=== PATIENT | female | born 1965 | race Caucasian/White ===

== ENCOUNTER 2018-07-03 15:19 | Inpatient (IN) | payer BC ==
[2018-07-03 15:28] VITALS: BMI 20.5
--- NOTE | 2018-07-03 18:26 | HP ---
COWS - Scale Resting Pulse: 0= [place] 80 or Below Sweatin= Chills/Flushing Restless Observation: 1= Difficult to Sit Still Pupil Size: 0= Normal to Room Light Bone or Joint Aches: 2= Severe Diffuse Aches Runny Nose/ Eye Tearin= Nasal Congestion GI Upset > 30mins: 1= Stomach Cramp Tremor Observation: 0= None Yawning Observation: 0= None Anxiety or Irritability: 2=Irritable/Anxious Goose Flesh Skin: 0=Smooth Skin COWS Score: 8 CIWA Score - CIWA Score Nausea/Vomitin-No Nausea/No Vomiting Muscle Tremors: None Anxiety: 4-Mod. Anxious/Guarded Agitation: 1-Slight > Activity Paroxysmal Sweats: No Perspiration Orientation: 0-Oriented Tacttile Disturbances: 0-None Auditory Disturbances: 0-None Visual Disturbances: 0-None Headache: 0-None Present CIWA-Ar Total Score: 5 Admission ROS BHS - HPI Allergies/Adverse Reactions: Allergies Allergy/AdvReac Type Severity Reaction Status Date / Time No Known Allergies Allergy Verified 07/03/18 18:21 History of Present Illness: pt here requesting detox from etoh , opiates , and xanax use , reports latest use this morning . difficulty obtaining etoh history reports 2-4 bags daily via inhalation, denies ivdu . benzo use : 4 sticks/day tobacco ;1 ppd , requesting nrt w/ patch . quentin 0.336 utox + fen, oxy, opi, bzo . pt is poor historian , teraful, falls asleep frequently during interview , answers some questions . pmhx : DM - claims on Metformin , no meds found in system , + PPM pshx : denies psych : anxiety, depression - Ebola screening Have you traveled outside of the country in the last 21 days: No (N) Have you had contact with anyone from an Ebola affected area: No Have you been sick,other than usual withdrawal symptoms: No Do you have a fever: No Patient History - Smoking Cessation Smoking history: Current every day smoker Have you smoked in the past 12 months: Yes Aproximately how many cigarettes per day: 20 Hx Chewing Tobacco Use: No Initiated information on smoking cessation: No Admission Physical Exam S - Vital Signs Vital Signs: Vital Signs - 24 hr 07/03/18 15:25 Temperature 97.2 F L Pulse Rate 71 Respiratory 18 Rate Blood Pressure 114/70 - Physical General Appearance: Yes: Moderate Distress, Alcohol on Breath, Thin, Tremorous, Irritable HEENTM: Yes: Hearing grossly Normal, Normocephalic, Other (missing teeth , poor dentition) Respiratory: Yes: Decreased Breath Sounds, Rhonchi Neck: Yes: No masses,lesions,Nodules Cardiology: Yes: Regular Rhythm, Regular Rate, Surgical Scar (PPM) Abdominal: Yes: Normal Bowel Sounds, Non Tender, Soft Genitourinary: Yes: Within Normal Limits Musculoskeletal: Yes: Other (staggering gait) Neurological: Yes: Other (slurred speech) Integumentary: Yes: Normal Color, Dry, Warm - Diagnostic (1) Alcohol withdrawal Current Visit: Yes Status: Acute Qualifiers: Complication of substance-induced condition: uncomplicated Qualified Code(s ): F10.230 - Alcohol dependence with withdrawal, uncomplicated (2) Opiate withdrawal Current Visit: Yes Status: Acute (3) Sedative dependence Current Visit: Yes Status: Acute (4) Hypertension Current Visit: Yes Status: Chronic Qualifiers: Hypertension type: essential hypertension Qualified Code(s): I10 - Essential (primary) hypertension (5) Diabetes 1.5, 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
[2018-07-03] MEDS ORDERED: chlordiazePOXIDE HCL 25 MG CAPSULE PO PRN (18:45)
[2018-07-03] MEDS ORDERED: P-EPHED 60MG/TRIPROLIDI 2.5MG TABLET PO PRN (18:45)
[2018-07-03] MEDS ORDERED: MAGNESIUM HYDROX 2400MG/30ML ORAL SUSPENSION 30 ML CUP PO PRN (18:45)
[2018-07-03] MEDS ORDERED: ACETAMINOPHEN 325 MG TABLET (FP) PO PRN (18:45)
[2018-07-03] MEDS ORDERED: MAG HYDROX/AL HYDROX/SIMETH 30 ML UNIT-DOSE CUP PO PRN (18:45)
[2018-07-03] MEDS ORDERED: guaiFENesin/D-METHORPHAN HB 10 ML UNIT-DOSE CUPS PO PRN (18:45)
[2018-07-03] MEDS ORDERED: MENTHOL/PHENOL 1 EACH UD MM PRN (18:45)
[2018-07-03] MEDS ORDERED: MAGNESIUM CITRATE 300 ML BOTTLE PO PRN (18:45)
[2018-07-03] MEDS ORDERED: IBUPROFEN 400 MG TABLET (FP) PO PRN (18:45)
[2018-07-03] MEDS ORDERED: ALBUTEROL SO4 0.083% IH SOL 2.5 MG/3 ML VIAL.NEB. NEB PRN (18:54)
[2018-07-03] MEDS ORDERED: ALBUTEROL SO4 8 GM HFA INHALER IH PRN (18:54)
[2018-07-03] MEDS ORDERED: chlordiazePOXIDE 5 MG CAPSULE PO PRN (19:46)
[2018-07-03] MEDS ORDERED: METHADONE HCL 10 MG TABLET (FOR DETOX USE ONLY) PO ONE ×4 (21:50→23:00)
[2018-07-03] MEDS: chlordiazePOXIDE HCL 25 MG CAPSULE PO SCH (22:34)
[2018-07-03] MEDS: THIAMINE HCL 100 MG TABLET (FP) PO SCH (22:35)
[2018-07-03] MEDS: ASPIRIN COATED 81 MG TABLET.EC PO SCH (22:35)
[2018-07-03] MEDS: INSULIN SLIDING SCALE (NOVOLOG) 1 VIAL SQ SCH (22:40)
[2018-07-03] MEDS ORDERED: chlordiazePOXIDE HCL 25 MG CAPSULE PO SCH (23:00)
[2018-07-04 01:00] LABS: URINE APPEARANCE CLEAR; URINE BILIRUBIN NEGATIVE (<2.0 mg/dL); URINE COLOR AMBER; URINE GLUCOSE (UA) NEGATIVE (NEGATIVE); URINE KETONE NEGATIVE (NEGATIVE); URINE LEUK ESTERASE 2+ (NEGATIVE); URINE NITRITE NEGATIVE (NEGATIVE); URINE PROTEIN NEGATIVE (NEGATIVE)
[2018-07-04 01:33] LABS: EPI CELLS MANY /HPF (FEW); URINE MUCUS FEW
[2018-07-04] MEDS: chlordiazePOXIDE HCL 25 MG CAPSULE PO SCH ×4 (06:04→22:56)
[2018-07-04] MEDS: INSULIN SLIDING SCALE (NOVOLOG) 1 VIAL SQ SCH ×5 (08:15→23:03)
[2018-07-04] MEDS ORDERED: METHADONE HCL 10 MG TABLET (FOR DETOX USE ONLY) PO SCH ×3 (10:00)
[2018-07-04 10:05] LABS: HEMATOCRIT 37.1 % (32.4-45.2); HEMOGLOBIN 11.9 GM/dL (10.7-15.3); MCH 29.4 pg (25.7-33.7); MEAN CELL VOLUME 91.9 fl (80-96); MEAN PLT VOLUME 11.1 fl (7.5-11.1); PLATELET COUNT 82 K/MM3 (134-434); RBC 4.04 M/mm3 (3.60-5.2); RDW 13.8 % (11.6-15.6); WHITE BLOOD COUNT 3.1 K/mm3 (4.0-10.0)
--- NOTE | 2018-07-04 10:13 | EKG ---
Test Reason : Blood Pressure : / mmHG Vent. Rate : 061 BPM Atrial Rate : 061 BPM P-R Int : 174 ms QRS Dur : 092 ms QT Int : 444 ms P-R-T Axes : 000 057 021 degrees QTc Int : 446 ms Atrial-paced rhythm WITH PREMATURE ATRIAL COMPLEXES MINIMAL VOLTAGE CRITERIA FOR LVH, MAY BE NORMAL VARIANT SEPTAL INFARCT , AGE UNDETERMINED ABNORMAL ECG NO PREVIOUS ECGS AVAILABLE Confirmed by MINDI OVALLE MD ([id number]) on 07/04/2018 10:13:27 AM Referred By: Confirmed By:MINDI OVALLE MD
[2018-07-04 10:19] LABS: ALBUMIN 2.9 g/dl (3.4-5.0); ALK PHOS 212 U/L (45-117); ANION GAP 9 MMOL/L (8-16); BILIRUBIN,TOTAL 1.2 mg/dL (0.2-1); BLOOD UREA NITROGEN 9 mg/dL (7-18); CALCIUM 8.3 mg/dL (8.5-10.1); CHLORIDE 104 mmol/L (98-107); CO2 30 mmol/L (21-32); CREATININE 0.5 mg/dL (0.55-1.3); GLUCOSE,RANDOM 57 mg/dL (74-106); POTASSIUM 3.4 mmol/L (3.5-5.1); SGOT/AST 276 U/L (15-37); SGPT/ALT 57 U/L (13-61); SODIUM 143 mmol/L (136-145); TOT PROT 7.4 g/dl (6.4-8.2)
[2018-07-04] MEDS: PRENATAL VITAMINS W/ FOLIC ACID TABLET (FP) PO SCH (10:33)
[2018-07-04] MEDS: ASPIRIN COATED 81 MG TABLET.EC PO SCH (10:33)
[2018-07-04] MEDS: NICOTINE 14 MG/24 HOURS TOPICAL PATCH TD SCH (10:33)
[2018-07-04] MEDS: ENALAPRIL MALEATE 2.5 MG TABLET (FP) PO SCH (10:36)
--- NOTE | 2018-07-04 12:31 | PN ---
[facility] CIWA - CIWA Score Nausea/Vomitin-Mild Nausea/No Vomiting Muscle Tremors: 4-Moderate,w/Arms Extend Anxiety: 4-Mod. Anxious/Guarded Agitation: 4-Moderately Restless Paroxysmal Sweats: 3 Orientation: 0-Oriented Tacttile Disturbances: 0-None Auditory Disturbances: 0-None Visual Disturbances: 0-None Headache: 0-None Present CIWA-Ar Total Score: 16 BHS COWS - Scale Resting Pulse: 0= [place] 80 or Below Sweatin=Flushed/Facial Moisture Restless Observation: 1= Difficult to Sit Still Pupil Size: 0= Normal to Room Light Bone or Joint Aches: 2= Severe Diffuse Aches Runny Nose/ Eye Tearin= Runny Nose/Eyes GI Upset > 30mins: 1= Stomach Cramp Tremor Observation of Outstretched Hands: 2= Slight Tremor Visible Yawning Observation: 2= >3x During Session Anxiety or Irritability: 2=Irritable/Anxious Goose Flesh Skin: 0=Smooth Skin COWS Score: 14 S Progress Note (SOAP) Subjective: chills sweats irritable agitation anxiety body aches nausea Objective: 07/04/18 12:29 Vital Signs Temperature 99.9 F H 07/04/18 10:00 Pulse Rate 67 07/04/18 10:00 Respiratory Rate 18 07/04/18 10:00 Blood Pressure 137/83 07/04/18 10:00 O2 Sat by Pulse Oximetry (%) Laboratory Tests 07/03/18 07/04/18 07/04/18 22:39 00:30 06:04 WBC RBC Hgb Hct MCV MCH MCHC RDW Plt Count MPV Sodium Potassium Chloride Carbon Dioxide Anion Gap BUN Creatinine Creat Clearance w eGFR POC Glucometer 166 77 Random Glucose Calcium Total Bilirubin AST ALT Alkaline Phosphatase Total Protein Albumin Urine Color Carolyn Urine Appearance Clear Urine pH 5.0 Ur Specific [place] 1.017 Urine Protein Negative Urine Glucose (UA) Negative Urine Ketones Negative Urine Blood 1+ H Urine Nitrite Negative Urine Bilirubin Negative Urine Urobilinogen 2.0 H Ur Leukocyte Esterase 2+ H Urine WBC (Auto) 27 Urine RBC (Auto) 5 Ur Epithelial Cells Many Urine Mucus Few RPR Titer 07/04/18 07/04/18 07/04/18 07:00 07:00 07:00 WBC 3.1 L RBC 4.04 Hgb 11.9 Hct 37.1 MCV 91.9 MCH 29.4 MCHC 32.0 RDW 13.8 Plt Count 82 L MPV 11.1 Sodium 143 Potassium 3.4 L Chloride 104 Carbon Dioxide 30 Anion Gap 9 BUN 9 Creatinine 0.5 L Creat Clearance w eGFR > 60 POC Glucometer Random Glucose 57 L Calcium 8.3 L Total Bilirubin 1.2 H AST 276 H ALT 57 Alkaline Phosphatase 212 H Total Protein 7.4 Albumin 2.9 L Urine Color Urine Appearance Urine pH Ur Specific [place] Urine Protein Urine Glucose (UA) Urine Ketones Urine Blood Urine Nitrite Urine Bilirubin Urine Urobilinogen Ur Leukocyte Esterase Urine WBC (Auto) Urine RBC (Auto) Ur Epithelial Cells Urine Mucus RPR Titer Nonreactive low potassium 3.4 kdur 20meq x 3 days ordered increase fluids Assessment: 07/04/18 12:30 withdrawal sx Plan: continue detox increase fluids repeat labs cmp
[2018-07-04] MEDS: POTASSIUM CHLORIDE TABS 20 MEQ TABLET.ER (FP) PO SCH (13:00)
--- NOTE | 2018-07-04 13:04 | CONSULT ---
[facility] Psychiatric Consult - Data Date of interview: 07/04/18 Admission source: [facility] Identifying data: Patient is a 53 year old single female, mother of two, unemployed, homeless, and is supported by [facility]. This is patient's first admission to detox at [facility]. Patient admitted to for alcohol, benzodiazepine and opiate dependence. Substance Abuse History: - Smoking Cessation. Smoking history: Current every day smoker. Have you smoked in the past 12 months: Yes. Aproximately how many cigarettes per day: 20. Hx Chewing Tobacco Use: No. Initiated information on smoking cessation: No Medical History: diabetes Psychiatric History: Patient denies h/o psychiatric hospitalization, outpatient care, and suicide attempt. Physical/Sexual Abuse/Trauma History: denies. Mental Status Exam - Mental Status Exam Alert and Oriented to: Time, Place, Person Cognitive Function: Fair Patient Appearance: Well Groomed Mood: Withdrawn, Euthymic Affect: Mood Congruent Patient Behavior: Fatigued Speech Pattern: Appropriate Voice Loudness: Moderately Soft/Quiet Thought Process: Intact, Goal Oriented Thought Disorder: Not Present Hallucinations: Denies Suicidal Ideation: Denies Homicidal Ideation: Denies Insight/Judgement: Poor Sleep: Fair Appetite: Fair Muscle strength/Tone: Normal Gait/Station: Normal Psychiatric Findings - Problem List ([place] 1, 2,3) (1) Alcohol dependence with withdrawal Current Visit: Yes Status: Acute (2) Opioid dependence with withdrawal Current Visit: Yes Status: Acute (3) Sedative dependence Current Visit: Yes Status: Acute (4) Substance induced mood disorder Current Visit: Yes Status: Suspected - Initial Treatment Plan Initial Treatment Plan: Psychoeducation provided. Detoxification in progress. Observation.
[2018-07-04] MEDS: THIAMINE HCL 100 MG TABLET (FP) PO SCH (22:56)
[2018-07-04] MEDS ORDERED: chlordiazePOXIDE HCL 25 MG CAPSULE PO SCH (23:00)
[2018-07-05] MEDS: chlordiazePOXIDE HCL 25 MG CAPSULE PO SCH ×3 (05:56→17:32)
[2018-07-05] MEDS: INSULIN SLIDING SCALE (NOVOLOG) 1 VIAL SQ SCH ×4 (07:57→22:07)
[2018-07-05] MEDS ORDERED: METHADONE HCL 5 MG TABLET (FOR DETOX USE ONLY) PO SCH ×2 (10:00)
[2018-07-05] MEDS: PRENATAL VITAMINS W/ FOLIC ACID TABLET (FP) PO SCH (10:09)
[2018-07-05] MEDS: POTASSIUM CHLORIDE TABS 20 MEQ TABLET.ER (FP) PO SCH (10:09)
[2018-07-05] MEDS: METHADONE HCL 5 MG TABLET (FOR DETOX USE ONLY) PO SCH (10:10)
[2018-07-05] MEDS: ENALAPRIL MALEATE 2.5 MG TABLET (FP) PO SCH (10:10)
[2018-07-05] MEDS: ASPIRIN COATED 81 MG TABLET.EC PO SCH (10:10)
[2018-07-05] MEDS: NICOTINE 14 MG/24 HOURS TOPICAL PATCH TD SCH (10:10)
[2018-07-05] MEDS ORDERED: INSULIN (NOVOLOG) ASPART 100 UNITS/ML 10ML VIAL ONE (12:28)
[2018-07-05] MEDS: chlordiazePOXIDE HCL 25 MG CAPSULE PO PRN ×2 (14:14→20:02)
--- NOTE | 2018-07-05 15:25 | PN ---
S CIWA - CIWA Score Nausea/Vomitin Muscle Tremors: 2 Anxiety: 2 Agitation: 2 Paroxysmal Sweats: 2 Orientation: 0-Oriented Tacttile Disturbances: 1-Very Mild Itch/Numbness Auditory Disturbances: 0-None Visual Disturbances: 1-Very Mild Sensitivity Headache: 0-None Present CIWA-Ar Total Score: 12 BHS COWS - Scale Resting Pulse: 0= [place] 80 or Below Sweatin= Chills/Flushing Restless Observation: 1= Difficult to Sit Still Pupil Size: 0= Normal to Room Light Bone or Joint Aches: 2= Severe Diffuse Aches Runny Nose/ Eye Tearin= Runny Nose/Eyes GI Upset > 30mins: 1= Stomach Cramp Tremor Observation of Outstretched Hands: 1= Tremor [place], Not Seen Yawning Observation: 2= >3x During Session Anxiety or Irritability: 2=Irritable/Anxious Goose Flesh Skin: 0=Smooth Skin COWS Score: 12 S Progress Note (SOAP) Subjective: fatigue, irritable, interrupted sleep Objective: 07/05/18 15:25 Vital Signs Temperature 98.1 F 07/05/18 15:08 Pulse Rate 72 07/05/18 15:08 Respiratory Rate 16 07/05/18 15:08 Blood Pressure 104/60 07/05/18 15:08 O2 Sat by Pulse Oximetry (%) Laboratory Last Values WBC 3.1 K/mm3 (4.0-10.0) L 07/04/18 07:00 RBC 4.04 M/mm3 (3.60-5.2) 07/04/18 07:00 Hgb 11.9 GM/dL (10.7-15.3) 07/04/18 07:00 Hct 37.1 % (32.4-45.2) 07/04/18 07:00 MCV 91.9 fl (80-96) 07/04/18 07:00 MCH 29.4 pg (25.7-33.7) 07/04/18 07:00 MCHC 32.0 g/dl (32.0-36.0) 07/04/18 07:00 RDW 13.8 % (11.6-15.6) 07/04/18 07:00 Plt Count 82 K/MM3 (134-434) L 07/04/18 07:00 MPV 11.1 fl (7.5-11.1) 07/04/18 07:00 Sodium 143 mmol/L (136-145) 07/04/18 07:00 Potassium 3.4 mmol/L (3.5-5.1) L 07/04/18 07:00 Chloride 104 mmol/L (98-107) 07/04/18 07:00 Carbon Dioxide 30 mmol/L (21-32) 07/04/18 07:00 Anion Gap 9 MMOL/L (8-16) 07/04/18 07:00 BUN 9 mg/dL (7-18) 07/04/18 07:00 Creatinine 0.5 mg/dL (0.55-1.3) L 07/04/18 07:00 Creat Clearance w eGFR > 60 (>60) 07/04/18 07:00 POC Glucometer 104 UNITS (80-120) 07/05/18 07:49 Random Glucose 57 mg/dL (74-106) L 07/04/18 07:00 Calcium 8.3 mg/dL (8.5-10.1) L 07/04/18 07:00 Total Bilirubin 1.2 mg/dL (0.2-1) H 07/04/18 07:00 AST 276 U/L (15-37) H 07/04/18 07:00 ALT 57 U/L (13-61) 07/04/18 07:00 Alkaline Phosphatase 212 U/L (45-117) H 07/04/18 07:00 Total Protein 7.4 g/dl (6.4-8.2) 07/04/18 07:00 Albumin 2.9 g/dl (3.4-5.0) L 07/04/18 07:00 Urine Color Carolyn 07/04/18 00:30 Urine Appearance Clear 07/04/18 00:30 Urine pH 5.0 (5.0-8.0) 07/04/18 00:30 Ur Specific [place] 1.017 (1.010-1.035) 07/04/18 00:30 Urine Protein Negative (NEGATIVE) 07/04/18 00:30 Urine Glucose (UA) Negative (NEGATIVE) 07/04/18 00:30 Urine Ketones Negative (NEGATIVE) 07/04/18 00:30 Urine Blood 1+ (NEGATIVE) H 07/04/18 00:30 Urine Nitrite Negative (NEGATIVE) 07/04/18 00:30 Urine Bilirubin Negative (<2.0 mg/dL) 07/04/18 00:30 Urine Urobilinogen 2.0 mg/dL (0.2-1.0) H 07/04/18 00:30 Ur Leukocyte Esterase 2+ (NEGATIVE) H 07/04/18 00:30 Urine WBC (Auto) 27 /hpf (3-5) 07/04/18 00:30 Urine RBC (Auto) 5 /hpf (0-3) 07/04/18 00:30 Ur Epithelial Cells Many /HPF (FEW) 07/04/18 00:30 Urine Mucus Few 07/04/18 00:30 RPR Titer Nonreactive (NONREACTIVE) 07/04/18 07:00 Aox3 , irritable, thin no adventitious breath sounds full ROM ambulating in the unit Assessment: 07/05/18 15:26 withdrawal sx Plan: increase fluids continue detox continue to monitor
[2018-07-05] MEDS: THIAMINE HCL 100 MG TABLET (FP) PO SCH (22:06)
[2018-07-05] MEDS: chlordiazePOXIDE 5 MG CAPSULE PO SCH (22:07)
[2018-07-05] MEDS: MELATONIN 5 MG TABLETS PO PRN (22:07)
[2018-07-05] MEDS ORDERED: chlordiazePOXIDE 5 MG CAPSULE PO SCH (23:00)
[2018-07-06] MEDS: chlordiazePOXIDE 5 MG CAPSULE PO SCH ×3 (05:30→17:38)
[2018-07-06] MEDS ORDERED: METHADONE HCL 5 MG TABLET (FOR DETOX USE ONLY) PO SCH (06:00)
[2018-07-06] MEDS: INSULIN SLIDING SCALE (NOVOLOG) 1 VIAL SQ SCH ×4 (06:22→22:46)
[2018-07-06] MEDS ORDERED: METHADONE HCL 10 MG TABLET (FOR DETOX USE ONLY) PO SCH (10:00)
[2018-07-06] MEDS: ASPIRIN COATED 81 MG TABLET.EC PO SCH (10:21)
[2018-07-06] MEDS: NICOTINE 14 MG/24 HOURS TOPICAL PATCH TD SCH (10:21)
[2018-07-06] MEDS: PRENATAL VITAMINS W/ FOLIC ACID TABLET (FP) PO SCH (10:21)
[2018-07-06] MEDS: METHADONE HCL 5 MG TABLET (FOR DETOX USE ONLY) PO SCH (10:21)
[2018-07-06] MEDS: ENALAPRIL MALEATE 2.5 MG TABLET (FP) PO SCH (10:21)
[2018-07-06] MEDS: POTASSIUM CHLORIDE TABS 20 MEQ TABLET.ER (FP) PO SCH (10:21)
[2018-07-06 11:16] LABS: URINE APPEARANCE CLOUDY; URINE GLUCOSE (UA) NEGATIVE (NEGATIVE); URINE KETONE NEGATIVE (NEGATIVE); URINE LEUK ESTERASE TRACE (NEGATIVE); URINE NITRITE NEGATIVE (NEGATIVE); URINE PROTEIN NEGATIVE (NEGATIVE); URINE UROBILINOGEN 4.0 E.U/dl mg/dL (0.2-1.0)
[2018-07-06 11:18] LABS: URINE COLOR YELLOW
[2018-07-06 11:44] LABS: CALCIUM OXALATE CRYSTALS MANY /hpf (NONE SEEN); EPI CELLS RARE /HPF (FEW); URINE MUCUS RARE
[2018-07-06 11:59] LABS: ALBUMIN 2.8 g/dl (3.4-5.0); ALK PHOS 223 U/L (45-117); ANION GAP 7 MMOL/L (8-16); BILIRUBIN,TOTAL 2.4 mg/dL (0.2-1); BLOOD UREA NITROGEN 10 mg/dL (7-18); CALCIUM 9.1 mg/dL (8.5-10.1); CHLORIDE 104 mmol/L (98-107); CO2 27 mmol/L (21-32); CREATININE 0.5 mg/dL (0.55-1.3); GLUCOSE,RANDOM 79 mg/dL (74-106); POTASSIUM 3.9 mmol/L (3.5-5.1); SGOT/AST 144 U/L (15-37); SGPT/ALT 47 U/L (13-61); SODIUM 138 mmol/L (136-145); TOT PROT 7.7 g/dl (6.4-8.2)
[2018-07-06] MEDS: chlordiazePOXIDE HCL 25 MG CAPSULE PO PRN (12:15)
--- NOTE | 2018-07-06 16:42 | PN ---
BHS Progress Note (SOAP) Subjective: sweat tremor body ache muscle cramp restlessness anxiety Objective: 07/06/18 16:42 Vital Signs Temperature 97.9 F 07/06/18 14:39 Pulse Rate 86 07/06/18 14:39 Respiratory Rate 86 H 07/06/18 14:40 Blood Pressure 138/115 H 07/06/18 14:40 O2 Sat by Pulse Oximetry (%) Laboratory Last Values WBC 3.1 K/mm3 (4.0-10.0) L 07/04/18 07:00 RBC 4.04 M/mm3 (3.60-5.2) 07/04/18 07:00 Hgb 11.9 GM/dL (10.7-15.3) 07/04/18 07:00 Hct 37.1 % (32.4-45.2) 07/04/18 07:00 MCV 91.9 fl (80-96) 07/04/18 07:00 MCH 29.4 pg (25.7-33.7) 07/04/18 07:00 MCHC 32.0 g/dl (32.0-36.0) 07/04/18 07:00 RDW 13.8 % (11.6-15.6) 07/04/18 07:00 Plt Count 82 K/MM3 (134-434) L 07/04/18 07:00 MPV 11.1 fl (7.5-11.1) 07/04/18 07:00 Sodium 138 mmol/L (136-145) 07/06/18 07:30 Potassium 3.9 mmol/L (3.5-5.1) 07/06/18 07:30 Chloride 104 mmol/L (98-107) 07/06/18 07:30 Carbon Dioxide 27 mmol/L (21-32) 07/06/18 07:30 Anion Gap 7 MMOL/L (8-16) L 07/06/18 07:30 BUN 10 mg/dL (7-18) 07/06/18 07:30 Creatinine 0.5 mg/dL (0.55-1.3) L 07/06/18 07:30 Creat Clearance w eGFR > 60 (>60) 07/06/18 07:30 POC Glucometer 104 UNITS (80-120) 07/05/18 07:49 Random Glucose 79 mg/dL (74-106) 07/06/18 07:30 Calcium 9.1 mg/dL (8.5-10.1) 07/06/18 07:30 Total Bilirubin 2.4 mg/dL (0.2-1) H 07/06/18 07:30 AST 144 U/L (15-37) H 07/06/18 07:30 ALT 47 U/L (13-61) 07/06/18 07:30 Alkaline Phosphatase 223 U/L (45-117) H 07/06/18 07:30 Total Protein 7.7 g/dl (6.4-8.2) 07/06/18 07:30 Albumin 2.8 g/dl (3.4-5.0) L 07/06/18 07:30 Urine Color Yellow 07/06/18 07:30 Urine Appearance Cloudy 07/06/18 07:30 Urine pH 8.0 (5.0-8.0) D 07/06/18 07:30 Ur Specific [place] 1.020 (1.010-1.035) 07/06/18 07:30 Urine Protein Negative (NEGATIVE) 07/06/18 07:30 Urine Glucose (UA) Negative (NEGATIVE) 07/06/18 07:30 Urine Ketones Negative (NEGATIVE) 07/06/18 07:30 Urine Blood Negative (NEGATIVE) 07/06/18 07:30 Urine Nitrite Negative (NEGATIVE) 07/06/18 07:30 Urine Bilirubin 2.0 (<2.0 mg/dL) 07/06/18 07:30 Urine Urobilinogen 4.0 e.u/dl mg/dL (0.2-1.0) H 07/06/18 07:30 Ur Leukocyte Esterase Trace (NEGATIVE) 07/06/18 07:30 Urine WBC (Auto) 12 /hpf (3-5) 07/06/18 07:30 Urine RBC (Auto) <1 /hpf (0-3) 07/06/18 07:30 Ur Epithelial Cells Rare /HPF (FEW) 07/06/18 07:30 Calcium Oxalate Crystal Many /hpf (NONE SEEN) 07/06/18 07:30 Urine Mucus Rare 07/06/18 07:30 RPR Titer Nonreactive (NONREACTIVE) 07/04/18 07:00 lab noted repeat ast Assessment: 07/06/18 16:43 withdrawal sx Plan: continue detox
[2018-07-06] MEDS: chlordiazePOXIDE HCL 10 MG CAPSULE PO SCH (22:46)
[2018-07-06] MEDS: THIAMINE HCL 100 MG TABLET (FP) PO SCH (22:46)
[2018-07-06] MEDS: MELATONIN 5 MG TABLETS PO PRN (22:46)
[2018-07-06] MEDS ORDERED: chlordiazePOXIDE HCL 10 MG CAPSULE PO SCH (23:00)
[2018-07-07] MEDS: chlordiazePOXIDE HCL 10 MG CAPSULE PO SCH ×3 (05:29→17:18)
[2018-07-07] MEDS ORDERED: METHADONE HCL 5 MG TABLET (FOR DETOX USE ONLY) PO SCH (06:00)
[2018-07-07] MEDS: INSULIN SLIDING SCALE (NOVOLOG) 1 VIAL SQ SCH ×4 (07:20→22:19)
[2018-07-07] MEDS ORDERED: METHADONE HCL 10 MG TABLET (FOR DETOX USE ONLY) PO SCH (10:00)
--- NOTE | 2018-07-07 10:02 | PN ---
BHS Progress Note (SOAP) Subjective: body aches sweats interrupted sleep Objective: 07/07/18 10:02 Vital Signs Temperature 98.7 F 07/07/18 09:15 Pulse Rate 80 07/07/18 09:15 Respiratory Rate 16 07/07/18 09:15 Blood Pressure 131/93 07/07/18 09:15 O2 Sat by Pulse Oximetry (%) aaox3 ambulating no acute distress Assessment: 07/07/18 10:02 withdrawal sx Plan: continue detox increase fluids d/c in am
[2018-07-07] MEDS: POTASSIUM CHLORIDE TABS 20 MEQ TABLET.ER (FP) PO SCH (10:24)
[2018-07-07] MEDS: PRENATAL VITAMINS W/ FOLIC ACID TABLET (FP) PO SCH (10:24)
[2018-07-07] MEDS: ASPIRIN COATED 81 MG TABLET.EC PO SCH (10:24)
[2018-07-07] MEDS: ENALAPRIL MALEATE 2.5 MG TABLET (FP) PO SCH (10:25)
[2018-07-07] MEDS: NICOTINE 14 MG/24 HOURS TOPICAL PATCH TD SCH (10:25)
[2018-07-07] MEDS: THIAMINE HCL 100 MG TABLET (FP) PO SCH (22:25)
[2018-07-08] MEDS ORDERED: METHADONE HCL 5 MG TABLET (FOR DETOX USE ONLY) PO SCH (06:00)
[2018-07-08] MEDS: INSULIN SLIDING SCALE (NOVOLOG) 1 VIAL SQ SCH ×3 (08:01→16:43)
--- NOTE | 2018-07-08 09:09 | DS ---
[facility] Detox Discharge Summary Admission Date: 07/03/18 Discharge Date: 07/08/18 - History Present History: Alcohol Dependence - Physical Exam Results Vital Signs: Vital Signs Temperature 98.6 F 07/08/18 06:23 Pulse Rate 70 07/08/18 06:23 Respiratory Rate 16 07/08/18 06:23 Blood Pressure 131/78 07/08/18 06:23 O2 Sat by Pulse Oximetry (%) - Treatment Hospital Course: Detox Protocol Followed, Detoxed Safely, Responded well, Discharged Condition Good, Rehab Referral Accepted - Medication Discharge Medications: Ambulatory Orders Aspirin 81 mg PO DAILY 07/03/18 Enalapril Maleate 2.5 mg PO DAILY 07/03/18 Metformin HCl [Metformin HCl ER] 500 mg PO DAILY 07/03/18 - Diagnosis (1) Alcohol dependence with withdrawal Current Visit: Yes Status: Chronic Qualifiers: Complication of substance-induced condition: uncomplicated Qualified Code(s ): F10.230 - Alcohol dependence with withdrawal, uncomplicated (2) Opioid dependence with withdrawal Current Visit: Yes Status: Chronic (3) Sedative dependence Current Visit: Yes Status: Acute (4) Diabetes 1.5, managed as type 2 Current Visit: Yes Status: Chronic (5) Hypertension Current Visit: Yes Status: Chronic Qualifiers: Hypertension type: essential hypertension Qualified Code(s): I10 - Essential (primary) hypertension (6) Pacemaker Current Visit: Yes Status: Chronic (7) Substance induced mood disorder Current Visit: Yes Status: Suspected - AMA Did Patient Leave Against Medical Advice: No (pt referred to [facility] rehab )
[2018-07-08] MEDS: PRENATAL VITAMINS W/ FOLIC ACID TABLET (FP) PO SCH (10:18)
[2018-07-08] MEDS: ASPIRIN COATED 81 MG TABLET.EC PO SCH (10:18)
[2018-07-08] MEDS: ENALAPRIL MALEATE 2.5 MG TABLET (FP) PO SCH (10:18)
[2018-07-08] MEDS: NICOTINE 14 MG/24 HOURS TOPICAL PATCH TD SCH (10:18)
[2018-07-08 14:37] VITALS: BP 107/66; PULSE 86; TEMP 99.9
== END 2018-07-08 18:04 | disposition home or self-care (01) | DRG 773 ==
LOC: YASAS 15:19 → Y6N 18:55
PROC: HZ2ZZZZ Detoxification Services for Substance Abuse Treatment (ICD-10-PCS; principal; 2018-07-03)
DX: F11.23 Opioid dependence with withdrawal (principal); F10.230 Alcohol dependence with withdrawal, uncomplicated; F13.20 Sedative, hypnotic or anxiolytic dependence, uncomplicated; F17.210 Nicotine dependence, cigarettes, uncomplicated; F19.24 Other psychoactive substance dependence with psychoactive substance-induced mood disorder; E11.9 Type 2 diabetes mellitus without complications; I10 Essential (primary) hypertension; Z79.84 Long term (current) use of oral hypoglycemic drugs; Z95.0 Presence of cardiac pacemaker; Z59.0 Homelessness
CPT/HCPCS: 36415; 80053; 81003; 81015; 82962; 84450; 85027; 86593; 93005; 93010

== ENCOUNTER 2018-07-14 18:31 | Emergency (ER) | payer BC ==
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
[2018-07-14 19:40] VITALS: BP 132/88; PULSE 92; TEMP 97.8; BMI 21.1
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
--- NOTE | 2018-07-15 12:52 | EKG ---
Test Reason : Blood Pressure : / mmHG Vent. Rate : 084 BPM Atrial Rate : 084 BPM P-R Int : 000 ms QRS Dur : 094 ms QT Int : 402 ms P-R-T Axes : 069 038 042 degrees QTc Int : 475 ms SINUS RHYTHM WITH PREMATURE ATRIAL COMPLEXES SEPTAL INFARCT (CITED ON OR BEFORE 03-JUL-2018) ABNORMAL ECG Confirmed by MD MACI, NATALIE ([id number]) on 07/15/2018 12:52:10 PM Referred By: Confirmed By:NATALIE LUX MD
== END 2018-07-14 20:44 ==
LOC: JER 18:31
DX: R06.02 Shortness of breath (principal); I10 Essential (primary) hypertension; E11.9 Type 2 diabetes mellitus without complications; Z79.84 Long term (current) use of oral hypoglycemic drugs; Z95.0 Presence of cardiac pacemaker; Z79.82 Long term (current) use of aspirin
CPT/HCPCS: 93005; 93010; 99281-25

== ENCOUNTER 2018-07-15 17:42 | Emergency (ER) | payer BC ==
[2018-07-15 18:13] VITALS: BMI 21.1
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
[2018-07-15] MEDS ORDERED: ALBUTEROL SO4 2.5/IPRATROPIUM 0.5 INH SOL 3 ML VIAL.NEB. NEB ONE ×2 (19:27→19:31)
[2018-07-15 22:27] LABS: BASO % 1.4 % (0-2.0); EOS % 2.3 % (0-4.5); HEMATOCRIT 39.8 % (32.4-45.2); HEMOGLOBIN 12.9 GM/dL (10.7-15.3); LYMPH % 36.4 % (8-40); MCH 29.7 pg (25.7-33.7); MCHC 32.4 g/dl (32.0-36.0); MEAN CELL VOLUME 91.6 fl (80-96); MEAN PLT VOLUME 8.9 fl (7.5-11.1); MONO % 9.1 % (3.8-10.2); NEUT % 50.8 % (42.8-82.8); PLATELET COUNT 224 K/MM3 (134-434); RBC 4.35 M/mm3 (3.60-5.2); RDW 14.5 % (11.6-15.6); WHITE BLOOD COUNT 6.3 K/mm3 (4.0-10.0)
[2018-07-15 22:41] LABS: INR 1.13 (0.83-1.09); PROTHROMBIN TIME (PATIENT) 13.4 SEC (9.7-13.0)
[2018-07-15 23:07] LABS: ALBUMIN 3.5 g/dl (3.4-5.0); ANION GAP 7 MMOL/L (8-16); BILIRUBIN,TOTAL 0.7 mg/dL (0.2-1); BLOOD UREA NITROGEN 11 mg/dL (7-18); CALCIUM 8.9 mg/dL (8.5-10.1); CHLORIDE 111 mmol/L (98-107); CO2 28 mmol/L (21-32); CREATININE 0.7 mg/dL (0.55-1.3); GLUCOSE,RANDOM 99 mg/dL (74-106); MAGNESIUM 1.7 mg/dL (1.8-2.4); POTASSIUM 3.6 mmol/L (3.5-5.1); SGOT/AST 126 U/L (15-37); SGPT/ALT 75 U/L (13-61); SODIUM 146 mmol/L (136-145)
[2018-07-15 23:08] LABS: ALK PHOS 181 U/L (45-117)
[2018-07-16 06:08] VITALS: BP 163/108; PULSE 88; TEMP 99
[2018-07-16] MEDS ORDERED: amLODIPine BESYLATE 10 MG TABLET (FP) PO ONE (06:48)
[2018-07-16] MEDS ORDERED: ENALAPRIL MALEATE 5 MG TABLET (FP) PO ONE (06:49)
--- NOTE | 2018-07-16 10:02 | EKG ---
Test Reason : Blood Pressure : / mmHG Vent. Rate : 082 BPM Atrial Rate : 082 BPM P-R Int : 146 ms QRS Dur : 090 ms QT Int : 398 ms P-R-T Axes : 072 061 042 degrees QTc Int : 464 ms NORMAL SINUS RHYTHM WITH SINUS ARRHYTHMIA MINIMAL VOLTAGE CRITERIA FOR LVH, MAY BE NORMAL VARIANT BORDERLINE ECG WHEN COMPARED WITH ECG OF 14-JUL-2018 20:30, PREMATURE ATRIAL COMPLEXES ARE NO LONGER PRESENT Confirmed by RUSS APARICIO, KELLY ([id number]) on 07/16/2018 10:01:51 AM Referred By: Confirmed By:KELLY SOLANO MD
== END 2018-07-16 07:05 | disposition home or self-care (01) ==
LOC: JER 17:42 → JERBED 07-16 01:14 → UNDOADMOB 07-16 01:14 → JER 07-16 07:05
PROC: 3E0F7GC Introduction of Other Therapeutic Substance into Respiratory Tract, Via Natural or Artificial Opening (ICD-10-PCS; principal; 2018-07-15)
DX: F10.120 Alcohol abuse with intoxication, uncomplicated (principal); J45.909 Unspecified asthma, uncomplicated; F11.20 Opioid dependence, uncomplicated; I10 Essential (primary) hypertension; E11.9 Type 2 diabetes mellitus without complications; Z79.84 Long term (current) use of oral hypoglycemic drugs
CPT/HCPCS: 36415; 71046-TC-FY; 80053; 80307; 83735; 84484; 85025; 85610; 93005; 93010; 99282-25

== ENCOUNTER 2018-07-19 22:47 | Emergency (ER) | payer BC ==
[2018-07-19 23:18] VITALS: BP 121/78; PULSE 82; TEMP 96.8; BMI 24.9
--- NOTE | 2018-07-19 23:27 | PDOC ---
History of Present Illness - General Chief Complaint: Chest Pain Stated Complaint: CHEST PAIN Time Seen by Provider: 07/19/18 23:25 History Source: Patient Exam Limitations: No Limitations - History of Present Illness Initial Comments: 07/19/18 23:50 This is a 53 year old female with a pacemaker, DM, asthma, opioid and alcohol dependance, depression, who presents to the emergency room with complaints of chest pain. This pain is anterior, worse with palpation and deep breath. She has had multiple visits to this ER for the same complaints. She has been worked up with no acute pathology. She had elevated liver enzymes that have been coming down at each visit. She is a daily alcohol drinker. She was escorted out of ER last visit, 07/15 due to assaulting staff. She lives in a long-term. She denies varner, blurry vision, n, v, abdominal pain, leg swelling. Timing/Duration: 1 week Past History - Past Medical History Allergies/Adverse Reactions: Allergies Allergy/AdvReac Type Severity Reaction Status Date / Time No Known Allergies Allergy Verified 07/19/18 23:18 Home Medications: Ambulatory Orders Aspirin 81 mg PO DAILY 07/03/18 Enalapril Maleate 2.5 mg PO DAILY 07/03/18 Metformin HCl [Metformin HCl ER] 500 mg PO DAILY 07/03/18 Asthma: No Cardiac Disorders: No COPD: No Diabetes: Yes GI Disorders: No Disorders: No HTN: Yes Seizures: No - Suicide/Smoking/Psychosocial Hx Smoking History: Current every day smoker Have you smoked in the past 12 months: Yes Number of Cigarettes Smoked Daily: 2 Information on smoking cessation initiated: No Hx Alcohol Use: Yes Drug/Substance Use Hx: Yes Review of Systems - Review of Systems Able to Perform ROS?: Yes (she does not want to answ) Constitutional: Yes: Symptoms Reported Respiratory: Yes: Shortness of Breath. No: Symptoms reported, Cough, SOB at Rest, Stridor, Wheezing Cardiac (ROS): Yes: Chest Pain. No: Edema, Irregular Heart Rate, Lightheadedness, Palpitations, Syncope ABD/GI: No: Abdominal Distended, Blood Streaked Bowels Musculoskeletal: No: Back Pain Neurological: No: Headache, Numbness, Paresthesia, Seizure, Ataxia, Dizziness Psychiatric: Yes: Depression *Physical Exam - Vital Signs Last Vital Signs Temp Pulse Resp BP Pulse Ox 96.8 F L 82 18 121/78 97 07/19/18 22:50 07/19/18 22:50 07/19/18 22:50 07/19/18 22:50 07/19/18 22:50 - Physical Exam General Appearance: Yes: Disheveled HEENT: positive: EOMI, CHON, Pharynx Normal Respiratory/Chest: positive: Lungs Clear, Normal Breath Sounds. negative: Respiratory Distress Cardiovascular: positive: Regular Rhythm, Regular Rate, S1, S2, Other ( pacemaker palpation; tenderness to palpation; anterior chest wall). negative: Edema, Tachycardia Vascular Pulses: Carotid (R): 2+, Carotid (L): 2+ Gastrointestinal/Abdominal: positive: Normal Bowel Sounds Extremity: positive: Normal Inspection Integumentary: positive: Normal Color Medical Decision Making - Medical Decision Making 07/19/18 23:58 This is a 53 year old female with HTN, DM, asthma, opioid and alcohol dependance , who repeatedly presents with chest pain that is palpable. Ancillary studies negative for acs. #chest pain most likely costochondritis; severely depressed -ecg unchanged;; negative for acute st-t wave changes #depression: requesting psych consult; Patient does not have home; lives in long-term; long-term is closed will continue to monitor in ER until morning. 07/20/18 01:23 *DC/Admit/Observation/Transfer Diagnosis at time of Disposition: Chest pain Qualifiers: Chest pain type: other chest pain Qualified Code(s): R07.89 - Other chest pain ; R07.8 - Other chest pain - Discharge Dispostion Condition at time of disposition: Fair Decision to Admit order: No - Referrals - Patient Instructions - Post Discharge Activity
--- NOTE | 2018-07-19 23:47 | PDOC ---
Attending Attestation - HPI HPI: 07/20/18 00:00 The patient is a 53-year-old female with a past medical history significant for HTN, DM, s/p pacemaker presents to the emergency department with chest pain. The patient presents with 3 days of exertional chest pain, thats aggravated with pressure or palpation of the chest wall. The patient was seen at the ED on 07/14 and 07/15 for similar concern, where she had a full workup with unremarkable results. Allergies: NKA Social history: Patient lives in a longterm, was discharged from rehab on 07/08 for alcohol, benzodiazepine and opiate detox. PCP: None reported - Medical Decision Making 07/20/18 00:00 Documentation prepared by Shayna Jimenez, acting as durable medical equipment technician for Avani Alberto MD. <Shayna Jimenez - Last Filed: 07/20/18 00:00> - Resident Resident Name: Myrtle Wynne - ED Attending Attestation I have performed the following: I have examined & evaluated the patient, The case was reviewed & discussed with the resident, I agree w/resident's findings & plan - Physicial Exam PE: 07/20/18 00:35 Pt is refusing to leave. She states that she wants to see a psychiatrist. We will request a consult. Pt is homeless and has no longterm to go to. - Medical Decision Making 07/20/18 04:13 She will be signed out to the day team. <Avani Alberto - Last Filed: 07/20/18 04:13>
--- NOTE | 2018-07-20 07:29 | PDOC ---
*Physical Exam - Vital Signs Last Vital Signs Temp Pulse Resp BP Pulse Ox 96.8 F L 82 18 121/78 97 07/19/18 22:50 07/19/18 23:09 07/19/18 23:09 07/19/18 22:50 07/19/18 23:09 Medical Decision Making - Medical Decision Making 07/20/18 07:24 pt signed out to me pending psych dispo for "psychiatric problems. Did not endorse SI or HI to the outgoing attending. Patient does not endorse HI or SI to me. States that she wants to see psychiatry for chronic depression. Will discharge home. *DC/Admit/Observation/Transfer Diagnosis at time of Disposition: Chest pain Qualifiers: Chest pain type: other chest pain Qualified Code(s): R07.89 - Other chest pain - Discharge Dispostion Disposition: HOME Condition at time of disposition: Good Decision to Admit order: No - Referrals - Patient Instructions Printed Discharge Instructions: DI for Chest Pain Additional Instructions: return to the ED for new or worsening symptoms, thoughts of hurting yourself or others. Make sure that you follow up with your primary care doctor. call for follow up with psychiatry. - Post Discharge Activity
--- NOTE | 2018-07-20 13:57 | EKG ---
Test Reason : Blood Pressure : / mmHG Vent. Rate : 072 BPM Atrial Rate : 072 BPM P-R Int : 144 ms QRS Dur : 094 ms QT Int : 410 ms P-R-T Axes : 074 054 044 degrees QTc Int : 448 ms NORMAL SINUS RHYTHM WITH SINUS ARRHYTHMIA SEPTAL INFARCT , AGE UNDETERMINED ABNORMAL ECG WHEN COMPARED WITH ECG OF 15-JUL-2018 21:17, NO SIGNIFICANT CHANGE WAS FOUND Confirmed by MD Ismael, Josh ([id number]) on 07/20/2018 1:57:14 PM Referred By: Confirmed By:Josh Guevara MD
== END 2018-07-20 08:04 | disposition home or self-care (01) ==
LOC: JER 22:47
DX: R07.89 Other chest pain (principal); I10 Essential (primary) hypertension; E11.9 Type 2 diabetes mellitus without complications; Z79.84 Long term (current) use of oral hypoglycemic drugs; J45.909 Unspecified asthma, uncomplicated; F10.20 Alcohol dependence, uncomplicated; Z59.0 Homelessness
CPT/HCPCS: 93005; 93010; 99283-25

== ENCOUNTER 2018-07-30 20:56 | Inpatient (IN) | payer BC ==
--- NOTE | 2018-07-30 21:32 | HP ---
CIWA Score Nausea/Vomitin Muscle Tremors: 4-Moderate,w/Arms Extend Anxiety: 4-Mod. Anxious/Guarded Agitation: 4-Moderately Restless Paroxysmal Sweats: 3 Orientation: 1-Uncertain about Date Tacttile Disturbances: 0-None Auditory Disturbances: 0-None Visual Disturbances: 0-None Headache: 3-Moderate CIWA-Ar Total Score: 22 - Admission Criteria [facility] Guidelines: Admission for Medically Managed Detox: Requires at least one of the followin. CIWA greater than 12 2. Seizures within the past 24 hours 3. Delirium tremens within the past 24 hours 4. Hallucinations within the past 24 hours 5. Acute intervention needed for co occurring medical disorder 6. Acute intervention needed for co occurring psychiatric disorder 7. Severe withdrawal that cannot be handled at a lower level of care (continued vomiting, continued diarrhea, abnormal vital signs) requiring intravenous medication and/or fluids 8. Patient presents the following: CIWA greater than 12, Acute intervention needed for co-occurring med or psych disorder Admission Criteria Met: Admission criteria met Admission ROS [facility] Chief Complaint: c/o withdrawal sx's. seeking detox from alcohol Allergies/Adverse Reactions: Allergies Allergy/AdvReac Type Severity Reaction Status Date / Time No Known Allergies Allergy Verified 07/30/18 21:35 History of Present Illness: 53 Y.O. FEMALE WITH LOLNG HX/O ALCOHOLISM HERE FOR DETOX. CLIENT WAS REFERRED BY HER CORRECTION AFTER PRESENTING THERE INTOXICATED. SHE IS KNOWN TO THIS PROGRAM , LAST HERE 3 WEEKS AGO. SHE REPORTS IMMEDIALTEY RELAPSING. SHE HAS HAD 3 ER VISITS IN THE PAST 3 WEEKS FOR C.P. SOB ALL RELATED TO INTOXICATION. SHE IS PRESENTLY INTOXICATED, AWAKE, ALERT WITH PERIOD OF AGITATION, CIWA 22. SHE DENIES HX/O SEIZURES, BLACKOUTS, AVH, SI,HI. SHE HAD A HX/O DM, HTN, HLD, DEPRESSION. REPORTS LONGEST CLEAN TIME 5 YEARS. SHE IS PRESENTLY HOMELESS. Exam Limitations: Intoxication - Ebola screening Have you traveled outside of the country in the last 21 days: No (N) Have you had contact with anyone from an Ebola affected area: No Do you have a fever: No - Review of Systems Constitutional: Chills, Loss of Appetite, Malaise, Night Sweats, Changes in sleep EENT: reports: Dental Problems (MISSING TEETH) Respiratory: reports: Shortness of Breath (HX/O ASTHMA) Cardiac: reports: No Symptoms Reported GI: reports: Poor Appetite, Poor Fluid Intake, Other (DRY HEAVING) : reports: No Symptoms Reported Musculoskeletal: reports: Back Pain (CHRONIC) Integumentary: reports: Flushing Neuro: reports: Headache Endocrine: reports: Other (HX/O DM) Hematology: reports: No Symptoms Reported Psychiatric: reports: Agitated, Depressed Other Systems: Reviewed and Negative Patient History - Patient Medical History Hx Anemia: No Hx Asthma: Yes Hx Chronic Obstructive Pulmonary Disease (COPD): No Hx Cancer: No Hx Cardiac Disorders: No Hx Congestive Heart Failure: No Hx Hypertension: Yes Hx Hypercholesterolemia: Yes Hx Pacemaker: No HX Cerebrovascular Accident: No Hx Seizures: No Hx Dementia: No Hx Diabetes: Yes Hx Gastrointestinal Disorders: No Hx Genitourinary Disorders: No Hx Sexually Transmitted Disorders: No Hx Renal Disease (ESRD): No Hx Thyroid Disease: No Hx Human Immunodeficiency Virus (HIV): No Hx Hepatitis C: No Hx Depression: Yes Hx Suicide Attempt: No Hx Bipolar Disorder: Yes Hx Schizophrenia: Yes Other Medical History: DENIES - Patient Surgical History Past Surgical History: No - PPD History Previous Implant?: Yes Documented Results: Negative w/proof Implanted On Prior [facility] Admission?: Yes Date: 07/05/18 Results: 0MM PPD to be Administered?: No - Reproductive History Patient is a Female of Child Bearing Age (11 -55 yrs old): Yes LMP comment: MENAPAUSE Patient : No ([place] [facility] [place] - Smoking Cessation Smoking history: Current every day smoker Have you smoked in the past 12 months: Yes Aproximately how many cigarettes per day: 2 Cigars Per Day: 0 Hx Chewing Tobacco Use: No Initiated information on smoking cessation: Yes 'Breaking Loose' booklet given: 07/30/18 - Substance & Tx. History Hx Alcohol Use: Yes Hx Substance Use: Yes Substance Use Type: Alcohol Hx Substance Use Treatment: Yes ([facility]) - Substances Abused MIKEY Route: Oral Frequency: Daily Amount used: 1 PINT Age of first use: 21 Date of Last Use: 07/30/18 Family Disease History - Family Disease History Family Disease History: CA: Father () Admission Physical Exam S - Physical General Appearance: Yes: Appropriately Dressed, Intoxicated, Tremorous, Irritable, Other (FALLING ASLEEP DURING INTERVIEW BUT EASLIY AROUSABLE) HEENTM: Yes: EOMI, Normocephalic, Normal Voice, CHON, Pharynx Normal, Other ( TOP DENTURES) Respiratory: Yes: Chest Non-Tender, Lungs Clear, Decreased Breath Sounds, No Respiratory Distress, No Accessory Muscle Use Neck: Yes: No masses,lesions,Nodules, Supple, Trachea in good position Breast: Yes: Breast Exam Deferred Cardiology: Yes: Regular Rhythm, Regular Rate, S1, S2 Abdominal: Yes: Normal Bowel Sounds, Non Tender, Soft Genitourinary: Yes: Within Normal Limits, Other (NO C/O OFFERED) Back: Yes: Normal Inspection Musculoskeletal: Yes: Other (UNSTEADY GAIT 2/2 INTOXICATION) Extremities: Yes: Normal Capillary Refill, Normal Range of Motion, Non-Tender, Tremors Neurological: Yes: Fully Oriented, Motor Strength 5/5, Depressed Affect, Other ( AROUSABLE) Integumentary: Yes: Warm, Other (FLUSHED) Lymphatic: Yes: Within Normal Limits - Diagnostic (1) HLD (hyperlipidemia) Current Visit: Yes Status: Suspected Qualifiers: Hyperlipidemia type: unspecified Qualified Code(s): E78.5 - Hyperlipidemia , unspecified (2) Asthma Current Visit: Yes Status: Chronic Qualifiers: Asthma severity: mild Asthma persistence: intermittent Asthma complication type: unspecified Qualified Code(s): J45.20 - Mild intermittent asthma, uncomplicated (3) Depressed affect Current Visit: Yes Status: Acute (4) At risk for dehydration due to poor fluid intake Current Visit: Yes Status: Acute (5) Alcohol intoxication Current Visit: Yes Status: Acute Qualifiers: Complication of substance-induced condition: uncomplicated Qualified Code(s ): F10.920 - Alcohol use, unspecified with intoxication, uncomplicated (6) Alcohol dependence with withdrawal Current Visit: Yes Status: Acute Qualifiers: Complication of substance-induced condition: uncomplicated Qualified Code(s ): F10.230 - Alcohol dependence with withdrawal, uncomplicated (7) Diabetes 1.5, managed as type 2 Current Visit: Yes Status: Chronic (8) Hypertension Current Visit: Yes Status: Chronic Qualifiers: Hypertension type: essential hypertension Qualified Code(s): I10 - Essential (primary) hypertension (9) Substance induced mood disorder Current Visit: Yes Status: Suspected Cleared for Admission S - Detox or Rehab S Level of Care: Medically Managed Detox Regimen/Protocol: Librium Claeared for Rehab Admission: No BHS Breath Alcohol Content Breath Alcohol Content: 0.217 Vital Signs - Vital Signs Vital Signs Refused: No Temperature: 98.1 F Temperature Source: Oral Pulse Rate: 85 Respiratory Rate: 18 Blood Pressure: 150/101 BP Location: Left Arm Blood Pressure Position: Sitting - Bowel Function Bowel Movement: No Urine Pregancy Test - Control Horizontal Line in Upper Control Window?: Yes - Result Urine Test Results: Negative- NO Line Present Urine Drug Screen - Control Is Test Valid: Yes - Results Drug Screen Negative: No Urine Drug Screen Results: BZO-Benzodiazepines
[2018-07-30 21:35] VITALS: BMI 21.1
[2018-07-30] MEDS ORDERED: guaiFENesin/D-METHORPHAN HB 10 ML UNIT-DOSE CUPS PO PRN (21:56)
[2018-07-30] MEDS ORDERED: MENTHOL/PHENOL 1 EACH UD MM PRN (21:56)
[2018-07-30] MEDS ORDERED: P-EPHED 60MG/TRIPROLIDI 2.5MG TABLET PO PRN (21:56)
[2018-07-30] MEDS ORDERED: IBUPROFEN 400 MG TABLET (FP) PO PRN (21:56)
[2018-07-30] MEDS ORDERED: NICOTINE POLACRILEX 2 MG GUM BC PRN (21:56)
[2018-07-30] MEDS ORDERED: MAG HYDROX/AL HYDROX/SIMETH 30 ML UNIT-DOSE CUP PO PRN (21:56)
[2018-07-30] MEDS ORDERED: ACETAMINOPHEN 325 MG TABLET (FP) PO PRN (21:56)
[2018-07-30] MEDS ORDERED: MAGNESIUM CITRATE 300 ML BOTTLE PO PRN (21:56)
[2018-07-30] MEDS ORDERED: MAGNESIUM HYDROX 2400MG/30ML ORAL SUSPENSION 30 ML CUP PO PRN (21:56)
[2018-07-30] MEDS ORDERED: LOPERAMIDE HCL 2 MG CAPSULE PO PRN (21:56)
[2018-07-30] MEDS ORDERED: MELATONIN 5 MG TABLETS PO PRN (22:00)
[2018-07-30] MEDS ORDERED: ENALAPRIL MALEATE 2.5 MG TABLET (FP) PO SCH (22:00)
[2018-07-30] MEDS: chlordiazePOXIDE HCL 25 MG CAPSULE PO SCH (22:36)
[2018-07-30] MEDS: ENALAPRIL MALEATE 5 MG TABLET (FP) PO SCH (22:37)
[2018-07-30] MEDS: THIAMINE HCL 100 MG TABLET (FP) PO SCH (22:37)
[2018-07-31] MEDS: chlordiazePOXIDE HCL 25 MG CAPSULE PO SCH ×4 (05:17→22:33)
--- NOTE | 2018-07-31 07:41 | CONSULT ---
[facility] Psychiatric Consult - Data Date of interview: 07/31/18 Admission source: [facility] Identifying data: This is a 53 years old female, single mother of two, domiciled , oin SSI support, with no psychiatric hospitalization history, long history of Alcohol and Nicotine dependence, as per computer with history ofSchizophrenia and Bipolar Disorder, denies suyicidal, homicidal history. Substance Abuse History: Smoking history: Current every day smoker. Have you smoked in the past 12 months: Yes. Aproximately how many cigarettes per day: 2. Cigars Per Day: 0. Hx Chewing Tobacco Use: No. Initiated information on smoking cessation: Yes. 'Breaking Loose' booklet given: 07/30/18. - Substance & Tx. History. Hx Alcohol Use: Yes. Hx Substance Use: Yes. Substance Use Type : Alcohol. Hx Substance Use Treatment: Yes ([facility]). - Substances Abused. MIKEY. Route: Oral. Frequency: Daily. Amount used: 1 PINT. Age of first use : 21. Date of Last Use: 07/30/18 Medical History: Asthma, DM-II, MHTN, Hyperlipidemia, Chest pain history, Pacemaker installment history Psychiatric History: Patient reports history of depression, anxiety and ionsomnia, As per computer there is a history of Schizophrenia and Bipolar Disorder, patient denies psychiatric hospitalization history, denies suicidal, homicidal history, patient reports no psychiatric medications taking prior to admission. Patient minimizing past posychiatric history, Physical/Sexual Abuse/Trauma History: Denies , unclear Additional Comment: Observation. Detox Unit Care Protocol Mental Status Exam - Mental Status Exam Alert and Oriented to: Person Cognitive Function: Fair Patient Appearance: Unkempt Mood: Withdrawn, Anxious Affect: Flat Patient Behavior: Sedated, Cooperative Speech Pattern: Delayed Voice Loudness: Mildly Soft/Quiet Thought Process: Circumstantial Thought Disorder: Being Controlled Hallucinations: Denies Suicidal Ideation: Denies Homicidal Ideation: Denies Insight/Judgement: Fair Sleep: Difficulty falling asleep Appetite: Weight gain Muscle strength/Tone: Mild Hypotonicity Gait/Station: Shuffling Additional Comments: Observation. Detox Unit Care Protocol Psychiatric Findings - Problem List ([place] 1, 2,3) (1) Alcohol dependence with withdrawal Current Visit: Yes Status: Acute Qualifiers: Complication of substance-induced condition: uncomplicated Qualified Code(s ): F10.230 - Alcohol dependence with withdrawal, uncomplicated (2) Alcohol intoxication Current Visit: Yes Status: Acute Qualifiers: Complication of substance-induced condition: uncomplicated Qualified Code(s ): F10.920 - Alcohol use, unspecified with intoxication, uncomplicated (3) Substance induced mood disorder Current Visit: Yes Status: Suspected (4) Opioid dependence with withdrawal Current Visit: No Status: Chronic - Initial Treatment Plan Initial Treatment Plan: Observation. Detox Unit Care Protocol
[2018-07-31] MEDS: PRENATAL VITAMINS W/ FOLIC ACID TABLET (FP) PO SCH (10:34)
[2018-07-31] MEDS: ENALAPRIL MALEATE 5 MG TABLET (FP) PO SCH (10:34)
[2018-07-31] MEDS: ASPIRIN 81 MG CHEWABLE TABLETS PO SCH (10:34)
[2018-07-31] MEDS: NICOTINE 14 MG/24 HOURS TOPICAL PATCH TD SCH (10:35)
[2018-07-31 10:45] LABS: HEMATOCRIT 34.7 % (32.4-45.2); HEMOGLOBIN 11.7 GM/dL (10.7-15.3); MCH 30.8 pg (25.7-33.7); MCHC 33.6 g/dl (32.0-36.0); MEAN CELL VOLUME 91.8 fl (80-96); PLATELET COUNT 122 K/MM3 (134-434); RBC 3.78 M/mm3 (3.60-5.2); RDW 14.1 % (11.6-15.6); WHITE BLOOD COUNT 2.5 K/mm3 (4.0-10.0)
[2018-07-31 10:53] LABS: ALBUMIN 3.1 g/dl (3.4-5.0); ALK PHOS 169 U/L (45-117); ANION GAP 7 MMOL/L (8-16); BILIRUBIN,TOTAL 0.6 mg/dL (0.2-1); BLOOD UREA NITROGEN 10 mg/dL (7-18); CALCIUM 8.6 mg/dL (8.5-10.1); CHLORIDE 106 mmol/L (98-107); CO2 30 mmol/L (21-32); CREATININE 0.6 mg/dL (0.55-1.3); GLUCOSE,RANDOM 79 mg/dL (74-106); POTASSIUM 3.5 mmol/L (3.5-5.1); SGOT/AST 71 U/L (15-37); SGPT/ALT 35 U/L (13-61); SODIUM 143 mmol/L (136-145); TOT PROT 7.5 g/dl (6.4-8.2)
--- NOTE | 2018-07-31 11:03 | PN ---
S CIWA - CIWA Score Nausea/Vomitin-Mild Nausea/No Vomiting Muscle Tremors: 4-Moderate,w/Arms Extend Anxiety: 4-Mod. Anxious/Guarded Agitation: 4-Moderately Restless Paroxysmal Sweats: 1-Minimal Palms Moist Orientation: 1-Uncertain about Date Tacttile Disturbances: 1-Very Mild Itch/Numbness Auditory Disturbances: 1-Very Mild Visual Disturbances: 0-None Headache: 1-Very Mild CIWA-Ar Total Score: 18 BHS Progress Note (SOAP) Subjective: tremor sweat anxiety restlessness trouble sleep at night trouble sitting still Objective: 07/31/18 11:05 Vital Signs Temperature 98.4 F 07/31/18 07:17 Pulse Rate 83 07/31/18 07:30 Respiratory Rate 18 07/31/18 07:30 Blood Pressure 131/84 07/31/18 07:17 O2 Sat by Pulse Oximetry (%) Laboratory Last Values WBC 2.5 K/mm3 (4.0-10.0) L 07/31/18 07:00 RBC 3.78 M/mm3 (3.60-5.2) 07/31/18 07:00 Hgb 11.7 GM/dL (10.7-15.3) 07/31/18 07:00 Hct 34.7 % (32.4-45.2) 07/31/18 07:00 MCV 91.8 fl (80-96) 07/31/18 07:00 MCH 30.8 pg (25.7-33.7) 07/31/18 07:00 MCHC 33.6 g/dl (32.0-36.0) 07/31/18 07:00 RDW 14.1 % (11.6-15.6) 07/31/18 07:00 Plt Count 122 K/MM3 (134-434) L D 07/31/18 07:00 MPV 10.0 fl (7.5-11.1) D 07/31/18 07:00 Sodium 143 mmol/L (136-145) 07/31/18 07:00 Potassium 3.5 mmol/L (3.5-5.1) 07/31/18 07:00 Chloride 106 mmol/L (98-107) 07/31/18 07:00 Carbon Dioxide 30 mmol/L (21-32) 07/31/18 07:00 Anion Gap 7 MMOL/L (8-16) L 07/31/18 07:00 BUN 10 mg/dL (7-18) 07/31/18 07:00 Creatinine 0.6 mg/dL (0.55-1.3) 07/31/18 07:00 Creat Clearance w eGFR > 60 (>60) 07/31/18 07:00 POC Glucometer 95 UNITS (80-120) 07/31/18 05:19 Random Glucose 79 mg/dL (74-106) 07/31/18 07:00 Calcium 8.6 mg/dL (8.5-10.1) 07/31/18 07:00 Total Bilirubin 0.6 mg/dL (0.2-1) 07/31/18 07:00 AST 71 U/L (15-37) H 07/31/18 07:00 ALT 35 U/L (13-61) 07/31/18 07:00 Alkaline Phosphatase 169 U/L (45-117) H 07/31/18 07:00 Total Protein 7.5 g/dl (6.4-8.2) 07/31/18 07:00 Albumin 3.1 g/dl (3.4-5.0) L 07/31/18 07:00 lab noted repeat cbc 07/31/18 11:11 Assessment: 07/31/18 11:12 withdrawal sx Plan: continue detox
--- NOTE | 2018-07-31 11:13 | EKG ---
Test Reason : Blood Pressure : / mmHG Vent. Rate : 078 BPM Atrial Rate : 078 BPM P-R Int : 142 ms QRS Dur : 096 ms QT Int : 406 ms P-R-T Axes : 051 031 028 degrees QTc Int : 462 ms NORMAL SINUS RHYTHM MINIMAL VOLTAGE CRITERIA FOR LVH, MAY BE NORMAL VARIANT BORDERLINE ECG WHEN COMPARED WITH ECG OF 19-JUL-2018 23:58, CRITERIA FOR SEPTAL INFARCT ARE NO LONGER PRESENT Confirmed by NIMCO APARICIO, RADHA ([id number]) on 07/31/2018 11:13:23 AM Referred By: Confirmed By:RADHA RINALDI MD
[2018-07-31] MEDS: hydrOXYzine PAMOATE 50 MG CAPSULE (FP) PO PRN (12:17)
[2018-07-31] MEDS: chlordiazePOXIDE HCL 25 MG CAPSULE PO PRN (12:17)
[2018-07-31] MEDS: THIAMINE HCL 100 MG TABLET (FP) PO SCH (22:33)
[2018-08-01] MEDS: chlordiazePOXIDE HCL 25 MG CAPSULE PO SCH ×3 (05:20→17:46)
--- NOTE | 2018-08-01 10:52 | PN ---
S CIWA - CIWA Score Nausea/Vomitin-No Nausea/No Vomiting Muscle Tremors: 4-Moderate,w/Arms Extend Anxiety: 3 Agitation: 4-Moderately Restless Paroxysmal Sweats: 3 Orientation: 0-Oriented Tacttile Disturbances: 0-None Auditory Disturbances: 0-None Visual Disturbances: 0-None Headache: 1-Very Mild CIWA-Ar Total Score: 15 BHS Progress Note (SOAP) Subjective: anxiety sweats shakes interrupted sleep body aches Objective: 08/01/18 10:51 Vital Signs Temperature 98.2 F 08/01/18 09:26 Pulse Rate 83 08/01/18 09:26 Respiratory Rate 18 08/01/18 09:26 Blood Pressure 145/98 08/01/18 10:14 O2 Sat by Pulse Oximetry (%) Laboratory Tests 07/30/18 07/31/18 07/31/18 21:30 05:19 07:00 WBC 2.5 L RBC 3.78 Hgb 11.7 Hct 34.7 MCV 91.8 MCH 30.8 MCHC 33.6 RDW 14.1 Plt Count 122 L D MPV 10.0 D Sodium Potassium Chloride Carbon Dioxide Anion Gap BUN Creatinine Creat Clearance w eGFR POC Glucometer 136 95 Random Glucose Calcium Total Bilirubin AST ALT Alkaline Phosphatase Total Protein Albumin RPR Titer 07/31/18 07/31/18 08/01/18 07:00 07:00 05:19 WBC RBC Hgb Hct MCV MCH MCHC RDW Plt Count MPV Sodium 143 Potassium 3.5 Chloride 106 Carbon Dioxide 30 Anion Gap 7 L BUN 10 Creatinine 0.6 Creat Clearance w eGFR > 60 POC Glucometer 99 Random Glucose 79 Calcium 8.6 Total Bilirubin 0.6 AST 71 H ALT 35 Alkaline Phosphatase 169 H Total Protein 7.5 Albumin 3.1 L RPR Titer Nonreactive aaox3 lying in bed no acute distress Assessment: 08/01/18 10:51 withdrawal sx Plan: continue detox increase fluids
[2018-08-01] MEDS: ENALAPRIL MALEATE 5 MG TABLET (FP) PO SCH (10:59)
[2018-08-01] MEDS: NICOTINE 14 MG/24 HOURS TOPICAL PATCH TD SCH (11:00)
[2018-08-01] MEDS: ASPIRIN 81 MG CHEWABLE TABLETS PO SCH (11:00)
[2018-08-01] MEDS: PRENATAL VITAMINS W/ FOLIC ACID TABLET (FP) PO SCH (11:00)
[2018-08-01] MEDS: hydrOXYzine PAMOATE 50 MG CAPSULE (FP) PO PRN ×2 (11:03→20:32)
[2018-08-01] MEDS ORDERED: cloNIDine HCL 0.1 MG TABLET PO PRN ×2 (11:09→11:12)
[2018-08-01] MEDS: chlordiazePOXIDE HCL 25 MG CAPSULE PO PRN (20:32)
[2018-08-01] MEDS: THIAMINE HCL 100 MG TABLET (FP) PO SCH (22:35)
[2018-08-01] MEDS: chlordiazePOXIDE 5 MG CAPSULE PO SCH (22:35)
[2018-08-02] MEDS: chlordiazePOXIDE 5 MG CAPSULE PO SCH ×2 (06:00→10:18)
[2018-08-02] MEDS: NICOTINE 14 MG/24 HOURS TOPICAL PATCH TD SCH (10:18)
[2018-08-02] MEDS: PRENATAL VITAMINS W/ FOLIC ACID TABLET (FP) PO SCH (10:18)
[2018-08-02] MEDS: ASPIRIN 81 MG CHEWABLE TABLETS PO SCH (10:18)
[2018-08-02] MEDS: ENALAPRIL MALEATE 5 MG TABLET (FP) PO SCH (10:18)
--- NOTE | 2018-08-02 10:37 | PN ---
S Progress Note Note: PATIENT CONTINUES WITH DETOX REGIMEN. PATIENT C/O INTERRUPTED SLEEP. Vital Signs Temperature 98.2 F 08/02/18 09:45 Pulse Rate 104 H 08/02/18 09:45 Respiratory Rate 16 08/02/18 09:45 Blood Pressure 104/56 L 08/02/18 09:45 O2 Sat by Pulse Oximetry (%) Laboratory Tests 07/30/18 07/31/18 07/31/18 21:30 05:19 07:00 WBC 2.5 L RBC 3.78 Hgb 11.7 Hct 34.7 MCV 91.8 MCH 30.8 MCHC 33.6 RDW 14.1 Plt Count 122 L D MPV 10.0 D Sodium Potassium Chloride Carbon Dioxide Anion Gap BUN Creatinine Creat Clearance w eGFR POC Glucometer 136 95 Random Glucose Calcium Total Bilirubin AST ALT Alkaline Phosphatase Total Protein Albumin RPR Titer 07/31/18 07/31/18 08/01/18 07:00 07:00 05:19 WBC RBC Hgb Hct MCV MCH MCHC RDW Plt Count MPV Sodium 143 Potassium 3.5 Chloride 106 Carbon Dioxide 30 Anion Gap 7 L BUN 10 Creatinine 0.6 Creat Clearance w eGFR > 60 POC Glucometer 99 Random Glucose 79 Calcium 8.6 Total Bilirubin 0.6 AST 71 H ALT 35 Alkaline Phosphatase 169 H Total Protein 7.5 Albumin 3.1 L RPR Titer Nonreactive PE: ALERT AND ORIENTED X 3 SKIN WARM AND DRY CAR S1S2 RESP CTA BL EXT FULL ROM A/P WITHDRAWAL SX CONTINUE DETOX ENCOURAGE ORAL FLUIDS CONTINUE TO MONITOR
--- NOTE | 2018-08-02 13:17 | PN ---
[facility] Progress Note Note: called by nurse ,patient would like to leave today,seen by counselors,nursing staff,all attempts to convince patient to stay with no avail, patient did not want to wait,has all medications at home,will follow up with out patient program and medical provider for foolow up, discharge today
--- NOTE | 2018-08-02 13:24 | DS ---
[facility] Detox Discharge Summary Admission Date: 07/30/18 Discharge Date: 08/02/18 - History Present History: Alcohol Dependence Additional Comments: patint is stble for discharge today,follow up with out patient program as arrangement and follow up with her own medical provider for medical problem,patient has all medications at home Pertinent Past History: type 2 dm hypertension asthma - Physical Exam Results Vital Signs: Vital Signs Temperature 98.2 F 08/02/18 09:45 Pulse Rate 104 H 08/02/18 09:45 Respiratory Rate 16 08/02/18 09:45 Blood Pressure 104/56 L 08/02/18 09:45 O2 Sat by Pulse Oximetry (%) Pertinent Admission Physical Exam Findings: withdrawal signs and symptom Laboratory Last Values WBC 2.5 K/mm3 (4.0-10.0) L 07/31/18 07:00 RBC 3.78 M/mm3 (3.60-5.2) 07/31/18 07:00 Hgb 11.7 GM/dL (10.7-15.3) 07/31/18 07:00 Hct 34.7 % (32.4-45.2) 07/31/18 07:00 MCV 91.8 fl (80-96) 07/31/18 07:00 MCH 30.8 pg (25.7-33.7) 07/31/18 07:00 MCHC 33.6 g/dl (32.0-36.0) 07/31/18 07:00 RDW 14.1 % (11.6-15.6) 07/31/18 07:00 Plt Count 122 K/MM3 (134-434) L D 07/31/18 07:00 MPV 10.0 fl (7.5-11.1) D 07/31/18 07:00 Sodium 143 mmol/L (136-145) 07/31/18 07:00 Potassium 3.5 mmol/L (3.5-5.1) 07/31/18 07:00 Chloride 106 mmol/L (98-107) 07/31/18 07:00 Carbon Dioxide 30 mmol/L (21-32) 07/31/18 07:00 Anion Gap 7 MMOL/L (8-16) L 07/31/18 07:00 BUN 10 mg/dL (7-18) 07/31/18 07:00 Creatinine 0.6 mg/dL (0.55-1.3) 07/31/18 07:00 Creat Clearance w eGFR > 60 (>60) 07/31/18 07:00 POC Glucometer 99 UNITS (80-120) 08/01/18 05:19 Random Glucose 79 mg/dL (74-106) 07/31/18 07:00 Calcium 8.6 mg/dL (8.5-10.1) 07/31/18 07:00 Total Bilirubin 0.6 mg/dL (0.2-1) 07/31/18 07:00 AST 71 U/L (15-37) H 07/31/18 07:00 ALT 35 U/L (13-61) 07/31/18 07:00 Alkaline Phosphatase 169 U/L (45-117) H 07/31/18 07:00 Total Protein 7.5 g/dl (6.4-8.2) 07/31/18 07:00 Albumin 3.1 g/dl (3.4-5.0) L 07/31/18 07:00 RPR Titer Nonreactive (NONREACTIVE) 07/31/18 07:00 Vital Signs Temperature 98.2 F 08/02/18 09:45 Pulse Rate 104 H 08/02/18 09:45 Respiratory Rate 16 08/02/18 09:45 Blood Pressure 104/56 L 08/02/18 09:45 O2 Sat by Pulse Oximetry (%) - Treatment Hospital Course: Detox Protocol Followed, Detoxed Safely, Responded well, Discharged Condition Good Patient has Accepted a Rehab Referral to: declined - Medication Discharge Medications: Ambulatory Orders Aspirin 81 mg PO DAILY 07/03/18 Enalapril Maleate 2.5 mg PO DAILY 07/03/18 Metformin HCl [Metformin HCl ER] 500 mg PO DAILY 07/03/18 - Diagnosis (1) Alcohol dependence with withdrawal Current Visit: Yes Status: Acute Qualifiers: Complication of substance-induced condition: uncomplicated Qualified Code(s ): F10.230 - Alcohol dependence with withdrawal, uncomplicated (2) Alcohol intoxication Current Visit: Yes Status: Acute Qualifiers: Complication of substance-induced condition: uncomplicated Qualified Code(s ): F10.920 - Alcohol use, unspecified with intoxication, uncomplicated (3) Asthma Current Visit: Yes Status: Chronic Qualifiers: Asthma severity: mild Asthma persistence: intermittent Asthma complication type: unspecified Qualified Code(s): J45.20 - Mild intermittent asthma, uncomplicated (4) Diabetes 1.5, managed as type 2 Current Visit: Yes Status: Chronic (5) Hypertension Current Visit: Yes Status: Chronic Qualifiers: Hypertension type: essential hypertension Qualified Code(s): I10 - Essential (primary) hypertension (6) HLD (hyperlipidemia) Current Visit: Yes Status: Suspected Qualifiers: Hyperlipidemia type: unspecified Qualified Code(s): E78.5 - Hyperlipidemia , unspecified - AMA Did Patient Leave Against Medical Advice: No
[2018-08-02 13:40] VITALS: BP 134/95; PULSE 75; TEMP 97.9
[2018-08-02] MEDS ORDERED: chlordiazePOXIDE HCL 10 MG CAPSULE PO SCH (23:00)
== END 2018-08-02 13:45 | disposition home or self-care (01) | DRG 773 ==
LOC: YASAS 20:56 → Y6N 21:47
PROC: HZ2ZZZZ Detoxification Services for Substance Abuse Treatment (ICD-10-PCS; principal; 2018-07-30)
DX: F11.23 Opioid dependence with withdrawal (principal); F10.230 Alcohol dependence with withdrawal, uncomplicated; F19.24 Other psychoactive substance dependence with psychoactive substance-induced mood disorder; F31.9 Bipolar disorder, unspecified; F20.9 Schizophrenia, unspecified; I10 Essential (primary) hypertension; E11.9 Type 2 diabetes mellitus without complications; Z79.84 Long term (current) use of oral hypoglycemic drugs; J45.20 Mild intermittent asthma, uncomplicated; E87.5 Hyperkalemia; R45.89 Other symptoms and signs involving emotional state; Z95.0 Presence of cardiac pacemaker; Z91.89 Other specified personal risk factors, not elsewhere classified
CPT/HCPCS: 36415; 80053; 82962; 85027; 86593; 93005; 93010; J0735

== ENCOUNTER 2018-09-19 12:43 | Inpatient (IN) | payer BC ==
[2018-09-19 12:53] VITALS: BMI 23.3
--- NOTE | 2018-09-19 15:22 | HP ---
COWS - Scale Resting Pulse: 1= [place] 81-100 Sweatin=Flushed/Facial Moisture Restless Observation: 1= Difficult to Sit Still Pupil Size: 1= Pupils >than Normal Bone or Joint Aches: 2= Severe Diffuse Aches Runny Nose/ Eye Tearin= Nasal Congestion GI Upset > 30mins: 1= Stomach Cramp Tremor Observation: 4= Gross Tremor/Twitching Yawning Observation: 0= None Anxiety or Irritability: 2=Irritable/Anxious Goose Flesh Skin: 0=Smooth Skin COWS Score: 15 CIWA Score Nausea/Vomitin Muscle Tremors: 4-Moderate,w/Arms Extend Anxiety: 4-Mod. Anxious/Guarded Agitation: 2 Paroxysmal Sweats: 3 Orientation: 0-Oriented Tacttile Disturbances: 2-Mild Itch/Numbness/Burn Auditory Disturbances: 0-None Visual Disturbances: 0-None Headache: 0-None Present CIWA-Ar Total Score: 18 - Admission Criteria OASAS Guidelines: Admission for Medically Managed Detox: Requires at least one of the followin. CIWA greater than 12 2. Seizures within the past 24 hours 3. Delirium tremens within the past 24 hours 4. Hallucinations within the past 24 hours 5. Acute intervention needed for co occurring medical disorder 6. Acute intervention needed for co occurring psychiatric disorder 7. Severe withdrawal that cannot be handled at a lower level of care (continued vomiting, continued diarrhea, abnormal vital signs) requiring intravenous medication and/or fluids 8. Patient presents the following: CIWA greater than 12 Admission Criteria Met: Admission criteria met Admission ROS S - HPI Chief Complaint: I need help to stop drinking and drugging . Allergies/Adverse Reactions: Allergies Allergy/AdvReac Type Severity Reaction Status Date / Time No Known Allergies Allergy Verified 09/19/18 14:23 History of Present Illness: 53 y/o f pt with longstanding h/o heroin and alcohol dependency seeking detox. Exam Limitations: No Limitations - Ebola screening Have you traveled outside of the country in the last 21 days: No Have you had contact with anyone from an Ebola affected area: No Have you been sick,other than usual withdrawal symptoms: No Do you have a fever: No - Review of Systems Constitutional: Loss of Appetite, Malaise, Night Sweats, Changes in sleep EENT: reports: Dental Problems (upper dentures , lower edentulous) Respiratory: reports: Wheezing Cardiac: reports: No Symptoms Reported GI: reports: Nausea, Poor Appetite, Vomiting, Abdominal cramping : reports: Frequency Musculoskeletal: reports: Back Pain, Joint Pain, Muscle Pain Integumentary: reports: Flushing Neuro: reports: Tremors Endocrine: reports: Increased Urine Hematology: reports: No Symptoms Reported Psychiatric: reports: Anxious, Depressed Other Systems: Reviewed and Negative Patient History - Patient Medical History Hx Anemia: No Hx Asthma: Yes (albuterol ) Hx Chronic Obstructive Pulmonary Disease (COPD): No Hx Cancer: No Hx Cardiac Disorders: No Hx Congestive Heart Failure: No Hx Hypertension: Yes (NON COMPLIANT WITH MEDS.) Hx Hypercholesterolemia: Yes (non adherent ) Hx Pacemaker: No HX Cerebrovascular Accident: No Hx Seizures: No Hx Dementia: No Hx Diabetes: Yes (Type II non compliant with meds.metformin hasn't taken ) Hx Gastrointestinal Disorders: No Hx Liver Disease: No Hx Genitourinary Disorders: No Hx Sexually Transmitted Disorders: No Hx Renal Disease (ESRD): No Hx Thyroid Disease: No Hx Human Immunodeficiency Virus (HIV): No Hx Hepatitis C: No Hx Depression: Yes Hx Suicide Attempt: No Hx Bipolar Disorder: Yes Hx Schizophrenia: No - Patient Surgical History Past Surgical History: No Hx Neurologic Surgery: No Hx Cataract Extraction: No Hx Cardiac Surgery: No Hx Lung Surgery: No Hx Breast Surgery: No Hx Breast Biopsy: No Hx Abdominal Surgery: No Hx Appendectomy: No Hx Cholecystectomy: No Hx Genitourinary Surgery: No Hx Section: No Hx Orthopedic Surgery: No Anesthesia Reaction: No - PPD History Previous Implant?: Yes Documented Results: Negative w/proof Implanted On Prior [facility] Admission?: Yes Date: 07/05/18 Results: 0 MM PPD to be Administered?: No - Reproductive History Last Menstrual Period: 03/09/03 Patient : No - Smoking Cessation Smoking history: Current every day smoker Have you smoked in the past 12 months: Yes Aproximately how many cigarettes per day: 10 Cigars Per Day: 0 Hx Chewing Tobacco Use: No Initiated information on smoking cessation: Yes 'Breaking Loose' booklet given: 09/19/18 - Substance & Tx. History Hx Alcohol Use: Yes Hx Substance Use: Yes Substance Use Type: Alcohol, Heroin - Substances Abused Heroin Route: Inhalation Frequency: Daily Amount used: 6-7 BAGS Age of first use: 21 Date of Last Use: 09/18/18 Alcohol Route: Oral Frequency: Daily Amount used: 2 PINTS MIKEY Age of first use: 26 Date of Last Use: 09/18/18 Family Disease History - Family Disease History Family Disease History: [place]: Father () Admission Physical Exam [facility] - Vital Signs Vital Signs: Vital Signs - 24 hr 09/19/18 12:46 Temperature 97.8 F Pulse Rate 76 Respiratory 18 Rate Blood Pressure 148/71 53y/o f pt aox3 , +tremor but cooperative with exam. - Physical General Appearance: Yes: Appropriately Dressed, Tremorous, Sweating, Anxious HEENTM: Yes: Hearing grossly Normal, Normal ENT Inspection, Normal Voice, CHON, Other (upper dentures in place , edentulous lower) Respiratory: Yes: Chest Non-Tender, Lungs Clear, Normal Breath Sounds Neck: Yes: Supple, Trachea in good position Breast: Yes: Breast Exam Deferred Cardiology: Yes: Regular Rhythm, Regular Rate, S1, S2 Abdominal: Yes: Non Tender, Flat, Increased Bowel Sounds Genitourinary: Yes: Frequency Back: Yes: Decreased Range of Motion Musculoskeletal: Yes: Back pain, Muscle Pain Extremities: Yes: Tremors 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, Fully Oriented, Alert, Motor Strength 5/5 Integumentary: Yes: Diaphoresis, Moist Lymphatic: Yes: Within Normal Limits - Diagnostic (1) Alcohol dependence with withdrawal Current Visit: Yes Status: Chronic Qualifiers: Complication of substance-induced condition: uncomplicated Qualified Code(s ): F10.230 - Alcohol dependence with withdrawal, uncomplicated (2) Asthma Current Visit: Yes Status: Chronic Qualifiers: Asthma severity: mild Asthma persistence: intermittent Asthma complication type: unspecified Qualified Code(s): J45.20 - Mild intermittent asthma, uncomplicated (3) Hypertension Current Visit: Yes Status: Chronic Qualifiers: Hypertension type: essential hypertension Qualified Code(s): I10 - Essential (primary) hypertension (4) Opioid dependence with withdrawal Current Visit: Yes Status: Chronic (5) HLD (hyperlipidemia) Current Visit: Yes Status: Chronic Qualifiers: Hyperlipidemia type: unspecified Qualified Code(s): E78.5 - Hyperlipidemia , unspecified Cleared for Admission [facility] - Detox or Rehab [facility] Level of Care: Medically Managed Detox Regimen/Protocol: Methadone/Librium [facility] Breath Alcohol Content Breath Alcohol Content: 0 Urine Pregancy Test - Result Urine Test Results: Negative- NO Line Present Urine Drug Screen - Results Drug Screen Negative: No Urine Drug Screen Results: OPI-Opiates, BAR-Barbiturates, MTD-Methadone, OXY- Oxycodone, FEN-Fentanyl
[2018-09-19] MEDS ORDERED: ACETAMINOPHEN 325 MG TABLET (FP) PO PRN (15:34)
[2018-09-19] MEDS ORDERED: guaiFENesin/D-METHORPHAN HB 10 ML UNIT-DOSE CUPS PO PRN (15:34)
[2018-09-19] MEDS ORDERED: MAGNESIUM CITRATE 300 ML BOTTLE PO PRN (15:34)
[2018-09-19] MEDS ORDERED: MAGNESIUM HYDROX 2400MG/30ML ORAL SUSPENSION 30 ML CUP PO PRN (15:34)
[2018-09-19] MEDS ORDERED: MAG HYDROX/AL HYDROX/SIMETH 30 ML UNIT-DOSE CUP PO PRN (15:34)
[2018-09-19] MEDS ORDERED: chlordiazePOXIDE HCL 25 MG CAPSULE PO PRN (15:34)
[2018-09-19] MEDS ORDERED: NICOTINE POLACRILEX 4 MG GUM BC PRN (15:34)
[2018-09-19] MEDS ORDERED: MENTHOL/PHENOL 1 EACH UD MM PRN (15:34)
[2018-09-19] MEDS ORDERED: P-EPHED 60MG/TRIPROLIDI 2.5MG TABLET PO PRN (15:34)
[2018-09-19] MEDS ORDERED: IBUPROFEN 400 MG TABLET (FP) PO PRN (15:34)
[2018-09-19] MEDS ORDERED: hydrOXYzine PAMOATE 25 MG CAPSULE (FP) PO PRN (15:34)
[2018-09-19] MEDS ORDERED: LOPERAMIDE HCL 2 MG CAPSULE PO PRN (15:34)
[2018-09-19] MEDS ORDERED: ALBUTEROL SO4 8 GM HFA INHALER IH PRN (15:38)
[2018-09-19] MEDS ORDERED: chlordiazePOXIDE HCL 25 MG CAPSULE PO ONE (16:45)
[2018-09-19] MEDS ORDERED: METHADONE HCL 10 MG TABLET (FOR DETOX USE ONLY) PO ONE ×2 (16:45→23:00)
[2018-09-19] MEDS: chlordiazePOXIDE HCL 25 MG CAPSULE PO SCH ×2 (17:37→22:16)
[2018-09-19] MEDS ORDERED: MELATONIN 5 MG TABLETS PO PRN (22:00)
[2018-09-19] MEDS: THIAMINE HCL 100 MG TABLET (FP) PO SCH (22:16)
[2018-09-20] MEDS: chlordiazePOXIDE HCL 25 MG CAPSULE PO SCH ×4 (05:06→22:16)
--- NOTE | 2018-09-20 09:56 | PN ---
[facility] CIWA - CIWA Score Nausea/Vomitin-No Nausea/No Vomiting Muscle Tremors: 3 Anxiety: 3 Agitation: 3 Paroxysmal Sweats: 2 Orientation: 0-Oriented Tacttile Disturbances: 0-None Auditory Disturbances: 0-None Visual Disturbances: 0-None Headache: 2-Mild CIWA-Ar Total Score: 13 S COWS - Scale Resting Pulse: 0= [place] 80 or Below Sweatin= Chills/Flushing Restless Observation: 0= Sits Still Pupil Size: 2= Moderately Dilated Bone or Joint Aches: 2= Severe Diffuse Aches Runny Nose/ Eye Tearin= Nasal Congestion GI Upset > 30mins: 0= None Tremor Observation of Outstretched Hands: 2= Slight Tremor Visible Yawning Observation: 0= None Anxiety or Irritability: 2=Irritable/Anxious Goose Flesh Skin: 0=Smooth Skin COWS Score: 10 S Progress Note (SOAP) Subjective: PATIENT C/O CHILLS, SWEATING, SHAKES AND ANXIETY. Objective: 09/20/18 09:53 Vital Signs Temperature 98.1 F 09/20/18 09:24 Pulse Rate 64 09/20/18 09:24 Respiratory Rate 18 09/20/18 09:24 Blood Pressure 121/74 09/20/18 09:24 O2 Sat by Pulse Oximetry (%) Last Vital Signs Temp Pulse Resp BP Pulse Ox 98.1 F 64 18 121/74 09/20/18 09:24 09/20/18 09:24 09/20/18 09:24 09/20/18 09:24 PE: ALERT AND OREINTED X 3 SKIN WARM, +MILD MOISTURE TO TRUNK/CHEST EXT FULL ROM, +TREMORS +ANXIETY Assessment: 09/20/18 09:54 WITHDRAWAL SX Plan: CONTINUE DETOX ENCOURAGE ORAL FLUIDS LABS PENDING CONTINUE TO MONITOR
[2018-09-20] MEDS ORDERED: METHADONE HCL 10 MG TABLET (FOR DETOX USE ONLY) PO SCH (10:00)
[2018-09-20] MEDS: ASPIRIN 81 MG CHEWABLE TABLETS PO SCH (10:14)
[2018-09-20] MEDS: PRENATAL VITAMINS W/ FOLIC ACID TABLET (FP) PO SCH (10:14)
[2018-09-20] MEDS: NICOTINE 21 MG/24 HOURS TOPICAL PATCH TD SCH (10:15)
[2018-09-20] MEDS: ENALAPRIL MALEATE 2.5 MG TABLET (FP) PO SCH (10:47)
[2018-09-20 11:09] LABS: HEMATOCRIT 37.8 % (32.4-45.2); HEMOGLOBIN 12.1 GM/dL (10.7-15.3); MCH 29.7 pg (25.7-33.7); MCHC 31.9 g/dl (32.0-36.0); MEAN CELL VOLUME 93.1 fl (80-96); MEAN PLT VOLUME 10.8 fl (7.5-11.1); PLATELET COUNT 154 K/MM3 (134-434); RBC 4.07 M/mm3 (3.60-5.2); RDW 14.1 % (11.6-15.6); WHITE BLOOD COUNT 5.4 K/mm3 (4.0-10.0)
[2018-09-20 11:37] LABS: URINE APPEARANCE TURBID; URINE BILIRUBIN NEGATIVE (<2.0 mg/dL); URINE COLOR YELLOW; URINE GLUCOSE (UA) NEGATIVE (NEGATIVE); URINE KETONE TRACE (NEGATIVE); URINE LEUK ESTERASE NEGATIVE (NEGATIVE); URINE NITRITE NEGATIVE (NEGATIVE); URINE PROTEIN NEGATIVE (NEGATIVE)
[2018-09-20 11:51] LABS: ALBUMIN 3.9 g/dl (3.4-5.0); ALK PHOS 191 U/L (45-117); ANION GAP 8 MMOL/L (8-16); BILIRUBIN,TOTAL 1.2 mg/dL (0.2-1); BLOOD UREA NITROGEN 12 mg/dL (7-18); CALCIUM 8.4 mg/dL (8.5-10.1); CHLORIDE 102 mmol/L (98-107); CO2 27 mmol/L (21-32); CREATININE 0.8 mg/dL (0.55-1.3); GLUCOSE,RANDOM 107 mg/dL (74-106); POTASSIUM 3.8 mmol/L (3.5-5.1); SGOT/AST 90 U/L (15-37); SGPT/ALT 32 U/L (13-61); SODIUM 137 mmol/L (136-145); TOT PROT 8.4 g/dl (6.4-8.2)
--- NOTE | 2018-09-20 13:29 | EKG ---
Test Reason : Blood Pressure : / mmHG Vent. Rate : 061 BPM Atrial Rate : 061 BPM P-R Int : 168 ms QRS Dur : 090 ms QT Int : 434 ms P-R-T Axes : 087 051 024 degrees QTc Int : 436 ms Atrial-paced rhythm MODERATE VOLTAGE CRITERIA FOR LVH, MAY BE NORMAL VARIANT CANNOT RULE OUT SEPTAL INFARCT , AGE UNDETERMINED ABNORMAL ECG WHEN COMPARED WITH ECG OF 30-JUL-2018 22:54, ELECTRONIC ATRIAL PACEMAKER HAS REPLACED SINUS RHYTHM T WAVE AMPLITUDE HAS INCREASED IN ANTERIOR LEADS Confirmed by RADHA RINALDI MD ([id number]) on 09/20/2018 1:28:39 PM Referred By: Confirmed By:RADHA RINALDI MD
--- NOTE | 2018-09-20 17:05 | CONSULT ---
[facility] Psychiatric Consult - Data Date of interview: 09/20/18 Admission source: [facility] Identifying data: Readmission to [facility] for this 53 y/o female seeking detoxification treatment, on , for heroin and alcohol dependence. Patient is single, a mother of three (one ), homeless ( resides in half-way), unemployed and supported on SSI benefits. Substance Abuse History: Discussed with the patient. Ms Morales confirms current [facility] report : Smoking history: Current every day smoker. Have you smoked in the past 12 months: Yes. Aproximately how many cigarettes per day: 10. Cigars Per Day: 0. Hx Chewing Tobacco Use: No. Initiated information on smoking cessation : Yes. 'Breaking Loose' booklet given: 09/19/18. - Substance & Tx. History. Hx Alcohol Use: Yes. Hx Substance Use: Yes. Substance Use Type: Alcohol, Heroin. - Substances Abused. Heroin. Route: Inhalation. Frequency: Daily. Amount used: 6-7 BAGS. Age of first use: 21. Date of Last Use: . Alcohol. Route: Oral. Frequency: Daily. Amount used: 2 PINTS MIKEY. Age of first use: 26. Date of Last Use: 09/18/18 Medical History: Remarkable for hypertension, dyslipidemia, diabetes mellitus and bronchial asthma. Psychiatric History: Patient denies history of psychiatric hospitalizations, past exposure to psychotropic medications, OPD care or suicide attempts. Physical/Sexual Abuse/Trauma History: No reported history of abuse. Additional Comment: Urine Drug Screen Results: OPI-Opiates, BAR-Barbiturates, MTD-Methadone, OXY-Oxycodone, FEN-Fentanyl. Noted. Mental Status Exam - Mental Status Exam Alert and Oriented to: Time, Place, Person Cognitive Function: Good Patient Appearance: Well Groomed (thin habitus, petite frame) Mood: Hopeful, Euthymic Affect: Appropriate, Normal Range Patient Behavior: Appropriate (pleasant, friendly), Cooperative Speech Pattern: Clear, Appropriate Voice Loudness: Normal Thought Process: Intact, Goal Oriented Thought Disorder: Not Present Hallucinations: Denies Suicidal Ideation: Denies Homicidal Ideation: Denies Insight/Judgement: Poor Sleep: Well Appetite: Good Muscle strength/Tone: Normal Gait/Station: Normal Psychiatric Findings - Problem List ([place] 1, 2,3) (1) Opioid dependence with withdrawal Current Visit: Yes Status: Acute (2) Alcohol dependence with withdrawal Current Visit: Yes Status: Acute Qualifiers: Complication of substance-induced condition: uncomplicated Qualified Code(s ): F10.230 - Alcohol dependence with withdrawal, uncomplicated (3) Nicotine dependence Current Visit: Yes Status: Chronic - Initial Treatment Plan Initial Treatment Plan: Psychoeducation. Support. Detoxication in progress. AA/ NA meetings. Issue of relapse prevention discussed with patient. Motivational rounds. Group therapy + individual counseling. Rehabilitation encouraged. Observation.
[2018-09-20] MEDS: THIAMINE HCL 100 MG TABLET (FP) PO SCH (22:16)
[2018-09-21] MEDS: chlordiazePOXIDE HCL 25 MG CAPSULE PO SCH ×2 (05:09→10:13)
--- NOTE | 2018-09-21 09:58 | PN ---
[facility] CIWA - CIWA Score Nausea/Vomitin-Mild Nausea/No Vomiting Muscle Tremors: 3 Anxiety: 2 Agitation: 2 Paroxysmal Sweats: 1-Minimal Palms Moist Orientation: 1-Uncertain about Date (to date of the week) Tacttile Disturbances: 0-None Auditory Disturbances: 0-None Visual Disturbances: 0-None Headache: 2-Mild CIWA-Ar Total Score: 12 [facility] COWS - Scale Resting Pulse: 0= [place] 80 or Below Sweatin= Chills/Flushing Restless Observation: 0= Sits Still Pupil Size: 0= Normal to Room Light Bone or Joint Aches: 1= Mild Discomfort Runny Nose/ Eye Tearin= None GI Upset > 30mins: 2= Nausea/Diarrhea Tremor Observation of Outstretched Hands: 2= Slight Tremor Visible Yawning Observation: 1= 1-2x During Session Anxiety or Irritability: 1=Feels Anxious/Irritable Goose Flesh Skin: 0=Smooth Skin COWS Score: 8 S Progress Note (SOAP) Subjective: body aches joints pain tremor sweat sleep better at night Objective: 09/21/18 09:56 Vital Signs Temperature 98.2 F 09/21/18 09:24 Pulse Rate 67 09/21/18 09:24 Respiratory Rate 16 09/21/18 09:24 Blood Pressure 147/97 09/21/18 09:24 O2 Sat by Pulse Oximetry (%) Laboratory Last Values WBC 5.4 K/mm3 (4.0-10.0) 09/20/18 06:00 RBC 4.07 M/mm3 (3.60-5.2) 09/20/18 06:00 Hgb 12.1 GM/dL (10.7-15.3) 09/20/18 06:00 Hct 37.8 % (32.4-45.2) 09/20/18 06:00 MCV 93.1 fl (80-96) 09/20/18 06:00 MCH 29.7 pg (25.7-33.7) 09/20/18 06:00 MCHC 31.9 g/dl (32.0-36.0) L 09/20/18 06:00 RDW 14.1 % (11.6-15.6) 09/20/18 06:00 Plt Count 154 K/MM3 (134-434) D 09/20/18 06:00 MPV 10.8 fl (7.5-11.1) 09/20/18 06:00 Sodium 137 mmol/L (136-145) 09/20/18 06:00 Potassium 3.8 mmol/L (3.5-5.1) 09/20/18 06:00 Chloride 102 mmol/L (98-107) 09/20/18 06:00 Carbon Dioxide 27 mmol/L (21-32) 09/20/18 06:00 Anion Gap 8 MMOL/L (8-16) 09/20/18 06:00 BUN 12 mg/dL (7-18) 09/20/18 06:00 Creatinine 0.8 mg/dL (0.55-1.3) 09/20/18 06:00 Creat Clearance w eGFR > 60 (>60) 09/20/18 06:00 POC Glucometer 114 UNITS (80-120) 09/21/18 05:06 Random Glucose 107 mg/dL (74-106) H 09/20/18 06:00 Calcium 8.4 mg/dL (8.5-10.1) L 09/20/18 06:00 Total Bilirubin 1.2 mg/dL (0.2-1) H 09/20/18 06:00 AST 90 U/L (15-37) H 09/20/18 06:00 ALT 32 U/L (13-61) 09/20/18 06:00 Alkaline Phosphatase 191 U/L (45-117) H 09/20/18 06:00 Total Protein 8.4 g/dl (6.4-8.2) H 09/20/18 06:00 Albumin 3.9 g/dl (3.4-5.0) 09/20/18 06:00 Urine Color Yellow 09/20/18 08:30 Urine Appearance Turbid 09/20/18 08:30 Urine pH 5.0 (5.0-8.0) D 09/20/18 08:30 Ur Specific [place] 1.025 (1.010-1.035) 09/20/18 08:30 Urine Protein Negative (NEGATIVE) 09/20/18 08:30 Urine Glucose (UA) Negative (NEGATIVE) 09/20/18 08:30 Urine Ketones Trace (NEGATIVE) H 09/20/18 08:30 Urine Blood Negative (NEGATIVE) 09/20/18 08:30 Urine Nitrite Negative (NEGATIVE) 09/20/18 08:30 Urine Bilirubin Negative (<2.0 mg/dL) 09/20/18 08:30 Urine Urobilinogen 2.0 mg/dL (0.2-1.0) H 09/20/18 08:30 Ur Leukocyte Esterase Negative (NEGATIVE) 09/20/18 08:30 RPR Titer Nonreactive (NONREACTIVE) 09/20/18 06:00 lab noted Assessment: 09/21/18 09:57 withdrawal sx 09/21/18 09:57 hypertension Plan: continue detox
[2018-09-21] MEDS: ENALAPRIL MALEATE 2.5 MG TABLET (FP) PO SCH (10:12)
[2018-09-21] MEDS: METHADONE HCL 5 MG TABLET (FOR DETOX USE ONLY) PO SCH (10:13)
[2018-09-21] MEDS: ASPIRIN 81 MG CHEWABLE TABLETS PO SCH (10:13)
[2018-09-21] MEDS: PRENATAL VITAMINS W/ FOLIC ACID TABLET (FP) PO SCH (10:13)
[2018-09-21] MEDS: NICOTINE 21 MG/24 HOURS TOPICAL PATCH TD SCH (10:14)
[2018-09-21] MEDS: chlordiazePOXIDE 5 MG CAPSULE PO SCH ×2 (17:01→22:19)
[2018-09-21] MEDS: THIAMINE HCL 100 MG TABLET (FP) PO SCH (22:19)
[2018-09-22] MEDS: chlordiazePOXIDE 5 MG CAPSULE PO SCH ×2 (05:41→10:14)
--- NOTE | 2018-09-22 10:05 | PN ---
[facility] Progress Note (SOAP) Subjective: shakes sweats tired Objective: 09/22/18 10:05 Vital Signs Temperature 99.7 F H 09/22/18 09:25 Pulse Rate 65 09/22/18 09:25 Respiratory Rate 20 09/22/18 09:25 Blood Pressure 103/64 09/22/18 09:25 O2 Sat by Pulse Oximetry (%) aaox3 ambulating no acute distress Assessment: 09/22/18 10:05 withdrawal sx Plan: continue detox increase fluids
[2018-09-22] MEDS: PRENATAL VITAMINS W/ FOLIC ACID TABLET (FP) PO SCH (10:13)
[2018-09-22] MEDS: ASPIRIN 81 MG CHEWABLE TABLETS PO SCH (10:13)
[2018-09-22] MEDS: NICOTINE 21 MG/24 HOURS TOPICAL PATCH TD SCH (10:14)
[2018-09-22] MEDS: ENALAPRIL MALEATE 2.5 MG TABLET (FP) PO SCH (10:14)
[2018-09-22] MEDS: METHADONE HCL 5 MG TABLET (FOR DETOX USE ONLY) PO SCH (10:16)
[2018-09-22] MEDS: chlordiazePOXIDE HCL 10 MG CAPSULE PO SCH ×2 (17:38→22:22)
[2018-09-22] MEDS: THIAMINE HCL 100 MG TABLET (FP) PO SCH (22:22)
[2018-09-23] MEDS: chlordiazePOXIDE HCL 10 MG CAPSULE PO SCH ×2 (05:55→10:05)
--- NOTE | 2018-09-23 09:57 | PN ---
[facility] Progress Note Note: PATIENT CONTINUES WITH DETOX REGIMEN. PATIENT C/O NIGHT SWEATS AND INTERRUPTED SLEEP. Vital Signs Temperature 97.5 F L 09/23/18 09:32 Pulse Rate 61 09/23/18 09:32 Respiratory Rate 18 09/23/18 09:32 Blood Pressure 115/77 09/23/18 09:32 O2 Sat by Pulse Oximetry (%) Laboratory Tests 09/19/18 09/20/18 09/20/18 14:37 05:06 06:00 WBC 5.4 RBC 4.07 Hgb 12.1 Hct 37.8 MCV 93.1 MCH 29.7 MCHC 31.9 L RDW 14.1 Plt Count 154 D MPV 10.8 Sodium Potassium Chloride Carbon Dioxide Anion Gap BUN Creatinine Creat Clearance w eGFR POC Glucometer 149 104 Random Glucose Calcium Total Bilirubin AST ALT Alkaline Phosphatase Total Protein Albumin Urine Color Urine Appearance Urine pH Ur Specific [place] Urine Protein Urine Glucose (UA) Urine Ketones Urine Blood Urine Nitrite Urine Bilirubin Urine Urobilinogen Ur Leukocyte Esterase RPR Titer 09/20/18 09/20/18 09/20/18 06:00 06:00 08:30 WBC RBC Hgb Hct MCV MCH MCHC RDW Plt Count MPV Sodium 137 Potassium 3.8 Chloride 102 Carbon Dioxide 27 Anion Gap 8 BUN 12 Creatinine 0.8 Creat Clearance w eGFR > 60 POC Glucometer Random Glucose 107 H Calcium 8.4 L Total Bilirubin 1.2 H AST 90 H ALT 32 Alkaline Phosphatase 191 H Total Protein 8.4 H Albumin 3.9 Urine Color Yellow Urine Appearance Turbid Urine pH 5.0 D Ur Specific [place] 1.025 Urine Protein Negative Urine Glucose (UA) Negative Urine Ketones Trace H Urine Blood Negative Urine Nitrite Negative Urine Bilirubin Negative Urine Urobilinogen 2.0 H Ur Leukocyte Esterase Negative RPR Titer Nonreactive 09/21/18 09/22/18 09/23/18 05:06 05:40 05:54 WBC RBC Hgb Hct MCV MCH MCHC RDW Plt Count MPV Sodium Potassium Chloride Carbon Dioxide Anion Gap BUN Creatinine Creat Clearance w eGFR POC Glucometer 114 112 106 Random Glucose Calcium Total Bilirubin AST ALT Alkaline Phosphatase Total Protein Albumin Urine Color Urine Appearance Urine pH Ur Specific [place] Urine Protein Urine Glucose (UA) Urine Ketones Urine Blood Urine Nitrite Urine Bilirubin Urine Urobilinogen Ur Leukocyte Esterase RPR Titer PE: ALERT AND ORIENTED X 3 SKIN WARM AND DRY EXT FULL ROM, NO TREMORS AMB AD DRE A/P WITHDRAWAL SX CONTINUE DETOX ENCOURAGE ORAL FLUIDS CONTINUE TO MONITOR
[2018-09-23] MEDS ORDERED: METHADONE HCL 10 MG TABLET (FOR DETOX USE ONLY) PO SCH (10:00)
[2018-09-23] MEDS: ASPIRIN 81 MG CHEWABLE TABLETS PO SCH (10:05)
[2018-09-23] MEDS: PRENATAL VITAMINS W/ FOLIC ACID TABLET (FP) PO SCH (10:05)
[2018-09-23] MEDS: NICOTINE 21 MG/24 HOURS TOPICAL PATCH TD SCH (10:06)
[2018-09-23] MEDS: ENALAPRIL MALEATE 2.5 MG TABLET (FP) PO SCH (10:06)
[2018-09-23] MEDS: THIAMINE HCL 100 MG TABLET (FP) PO SCH (23:09)
[2018-09-24] MEDS ORDERED: METHADONE HCL 5 MG TABLET (FOR DETOX USE ONLY) PO SCH (06:00)
[2018-09-24 09:02] VITALS: BP 129/74; PULSE 60; TEMP 97.5
[2018-09-24] MEDS: PRENATAL VITAMINS W/ FOLIC ACID TABLET (FP) PO SCH (10:08)
[2018-09-24] MEDS: NICOTINE 21 MG/24 HOURS TOPICAL PATCH TD SCH (10:08)
[2018-09-24] MEDS: ENALAPRIL MALEATE 2.5 MG TABLET (FP) PO SCH (10:08)
[2018-09-24] MEDS: ASPIRIN 81 MG CHEWABLE TABLETS PO SCH (10:08)
--- NOTE | 2018-09-24 15:40 | DS ---
[facility] Detox Discharge Summary Admission Date: 09/19/18 Discharge Date: 09/24/18 - History Present History: Alcohol Dependence, Opioid Dependence Additional Comments: PATIENT SCHEDULED FOR DISCHARGE FROM DETOX UNIT TO DAY. PATIENT SCHEDULED TO GO TO [facility] ([place], [place]) FOR AFTERCARE. PATIENT WAS DISCHARGED FROM DETOX UNIT IN STABLE MEDICAL CONDITION. Pertinent Past History: History Of Depression, History Of Asthma, Hyperlipidemia, Type II DM, HTN, Nicotine Dependence, History of Bipolar Disorder. - Physical Exam Results Vital Signs: Vital Signs Temperature 97.5 F L 09/24/18 09:01 Pulse Rate 60 09/24/18 09:01 Respiratory Rate 18 09/24/18 09:01 Blood Pressure 129/74 09/24/18 09:01 O2 Sat by Pulse Oximetry (%) Pertinent Admission Physical Exam Findings: WITHDRAWAL SYMPTOMS. Laboratory Tests 09/19/18 09/20/18 09/20/18 14:37 05:06 06:00 WBC 5.4 RBC 4.07 Hgb 12.1 Hct 37.8 MCV 93.1 MCH 29.7 MCHC 31.9 L RDW 14.1 Plt Count 154 D MPV 10.8 Sodium Potassium Chloride Carbon Dioxide Anion Gap BUN Creatinine Creat Clearance w eGFR POC Glucometer 149 104 Random Glucose Calcium Total Bilirubin AST ALT Alkaline Phosphatase Total Protein Albumin Urine Color Urine Appearance Urine pH Ur Specific [place] Urine Protein Urine Glucose (UA) Urine Ketones Urine Blood Urine Nitrite Urine Bilirubin Urine Urobilinogen Ur Leukocyte Esterase RPR Titer 09/20/18 09/20/18 09/20/18 06:00 06:00 08:30 WBC RBC Hgb Hct MCV MCH MCHC RDW Plt Count MPV Sodium 137 Potassium 3.8 Chloride 102 Carbon Dioxide 27 Anion Gap 8 BUN 12 Creatinine 0.8 Creat Clearance w eGFR > 60 POC Glucometer Random Glucose 107 H Calcium 8.4 L Total Bilirubin 1.2 H AST 90 H ALT 32 Alkaline Phosphatase 191 H Total Protein 8.4 H Albumin 3.9 Urine Color Yellow Urine Appearance Turbid Urine pH 5.0 D Ur Specific [place] 1.025 Urine Protein Negative Urine Glucose (UA) Negative Urine Ketones Trace H Urine Blood Negative Urine Nitrite Negative Urine Bilirubin Negative Urine Urobilinogen 2.0 H Ur Leukocyte Esterase Negative RPR Titer Nonreactive 09/21/18 09/22/18 09/23/18 05:06 05:40 05:54 WBC RBC Hgb Hct MCV MCH MCHC RDW Plt Count MPV Sodium Potassium Chloride Carbon Dioxide Anion Gap BUN Creatinine Creat Clearance w eGFR POC Glucometer 114 112 106 Random Glucose Calcium Total Bilirubin AST ALT Alkaline Phosphatase Total Protein Albumin Urine Color Urine Appearance Urine pH Ur Specific [place] Urine Protein Urine Glucose (UA) Urine Ketones Urine Blood Urine Nitrite Urine Bilirubin Urine Urobilinogen Ur Leukocyte Esterase RPR Titer 09/24/18 05:34 WBC RBC Hgb Hct MCV MCH MCHC RDW Plt Count MPV Sodium Potassium Chloride Carbon Dioxide Anion Gap BUN Creatinine Creat Clearance w eGFR POC Glucometer 92 Random Glucose Calcium Total Bilirubin AST ALT Alkaline Phosphatase Total Protein Albumin Urine Color Urine Appearance Urine pH Ur Specific [place] Urine Protein Urine Glucose (UA) Urine Ketones Urine Blood Urine Nitrite Urine Bilirubin Urine Urobilinogen Ur Leukocyte Esterase RPR Titer LABS NOTED. - Treatment Hospital Course: Detox Protocol Followed, Detoxed Safely, Responded well, Discharged Condition Good, Rehab Referral Accepted Patient has Accepted a Rehab Referral to: [facility] ([place], [place]). - Medication Discharge Medications: Ambulatory Orders Albuterol Sulfate Inhaler - [Ventolin HFA Inhaler -] 2 inh IH Q4H PRN #1 inhaler 09/23/18 Aspirin 81 mg PO DAILY #7 tab.chew 09/23/18 Enalapril Maleate 2.5 mg PO DAILY #7 tablet 09/23/18 Metformin HCl [Metformin HCl ER] 500 mg PO DAILY #7 tab.er.24 09/23/18 - Diagnosis (1) Alcohol dependence with withdrawal Status: Acute Qualifiers: Complication of substance-induced condition: uncomplicated Qualified Code(s ): F10.230 - Alcohol dependence with withdrawal, uncomplicated (2) Depressed affect Status: Acute (3) Asthma Status: Chronic Qualifiers: Asthma severity: mild Asthma persistence: intermittent Asthma complication type: unspecified Qualified Code(s): J45.20 - Mild intermittent asthma, uncomplicated (4) HLD (hyperlipidemia) Status: Chronic Qualifiers: Hyperlipidemia type: unspecified Qualified Code(s): E78.5 - Hyperlipidemia , unspecified (5) Hypertension Status: Chronic Qualifiers: Hypertension type: essential hypertension Qualified Code(s): I10 - Essential (primary) hypertension (6) Nicotine dependence Status: Chronic Qualifiers: Nicotine product type: cigarettes Substance use status: uncomplicated Qualified Code(s): F17.210 - Nicotine dependence, cigarettes, uncomplicated - AMA Did Patient Leave Against Medical Advice: No
== END 2018-09-24 13:39 | disposition home or self-care (01) | DRG 773 ==
LOC: YASAS 12:43 → Y6N 16:38
PROC: HZ2ZZZZ Detoxification Services for Substance Abuse Treatment (ICD-10-PCS; principal; 2018-09-19)
DX: F11.23 Opioid dependence with withdrawal (principal); F10.230 Alcohol dependence with withdrawal, uncomplicated; F17.210 Nicotine dependence, cigarettes, uncomplicated; F32.9 Major depressive disorder, single episode, unspecified; I10 Essential (primary) hypertension; J45.20 Mild intermittent asthma, uncomplicated; E78.5 Hyperlipidemia, unspecified; E11.9 Type 2 diabetes mellitus without complications; Z91.14 Patient's other noncompliance with medication regimen; Z79.84 Long term (current) use of oral hypoglycemic drugs
CPT/HCPCS: 36415; 80053; 81003; 82962; 85027; 86593; 93005; 93010

== ENCOUNTER 2019-09-18 11:58 | Inpatient (IN) | payer BC ==
[2019-09-18 12:23] VITALS: BMI 23.8
--- NOTE | 2019-09-18 13:19 | HP ---
COWS - Scale Resting Pulse: 1= IA 81-100 Sweatin= Chills/Flushing Restless Observation: 1= Difficult to Sit Still Pupil Size: 1= Pupils >than Normal Bone or Joint Aches: 1= Mild Discomfort Runny Nose/ Eye Tearin= Nasal Congestion GI Upset > 30mins: 1= Stomach Cramp Tremor Observation: 2= Slight Tremor Visible Yawning Observation: 1= 1-2x During Session Anxiety or Irritability: 2=Irritable/Anxious Goose Flesh Skin: 0=Smooth Skin COWS Score: 12 CIWA Score Nausea/Vomitin-Mild Nausea/No Vomiting Muscle Tremors: 4-Moderate,w/Arms Extend Anxiety: 1-Mildly Anxious Agitation: 2 Paroxysmal Sweats: No Perspiration Orientation: 1-Uncertain about Date Tacttile Disturbances: 1-Very Mild Itch/Numbness Auditory Disturbances: 0-None Visual Disturbances: 0-None Headache: 2-Mild CIWA-Ar Total Score: 12 - Admission Criteria OASAS Guidelines: Admission for Medically Managed Detox: Requires at least one of the followin. CIWA greater than 12 2. Seizures within the past 24 hours 3. Delirium tremens within the past 24 hours 4. Hallucinations within the past 24 hours 5. Acute intervention needed for co occurring medical disorder 6. Acute intervention needed for co occurring psychiatric disorder 7. Severe withdrawal that cannot be handled at a lower level of care (continued vomiting, continued diarrhea, abnormal vital signs) requiring intravenous medication and/or fluids 8. Admitting History and Physical - Admission History of Present Illness: 54 yo f w/ PMH HTN, DM, Asthma, S/p ppm placement (at [facility] 5 yrs ago, reason unclear) polysubstance abuse who comes into [facility] for assistance with detoxification from herion and etoh. Patient states that she sniffs 7 bags of herion daily since 21 years old. last use today. She endorses having a narcan kit at home and had one episode of OD 3 years ago when she mixed methadone, suboxone and heroin. Patient was on a methadone program 20 years ago but has not been since. Patient states that he drinks 2 pints of vodka daily since she was 25 with his last use being this morning. She denies ever having blackouts or seizures as a result of ETOH use. She has undergone detox and rehab in the past, but relapsed shortly after. Of note, the patient was recently admitted to the ICU at [facility] for pneumonia and was discharged last Saturday without additional abx. The patient states that she takes Enalapril, metformin and albuterol for her chronic health conditions. She follows regularly with Dr. Hein in [place] but states that she has not taken her medications in the past 3 months due to pharmacy troubles with her insurance. The patient does not recall the location or name of her current or previous pahrmacy. She does endorse using S pharmacy in [place], but on medication reconciliation, the pharmacy had no records of her since 2016. COWS 12 CIWA 12 Current everyday smoker; approx. 1/2 ppd PPD negative 06/2018 INOCENCIA .075 Utox + MOP, FEN, BDZ Will admit for detox w/ MTD/Librium. Patient expresses desire to go to rehab after detox. History Source: Patient Limitations to Obtaining History: No Limitations - Past Medical History Cardiovascular: Yes: HTN Pulmonary: Yes: Asthma ...LMP: 03/09/03 Endocrine: Yes: Diabetes Mellitus - Past Surgical History Past Surgical History: Yes: None - Smoking History Smoking history: Current every day smoker Have you smoked in the past 12 months: Yes Aproximately how many cigarettes per day: 10 - Alcohol/Substance Use Hx Alcohol Use: Yes - Social History Usual Living Arrangement: Yes: Other (homeless) Admission [facility] Allergies/Adverse Reactions: Allergies Allergy/AdvReac Type Severity Reaction Status Date / Time No Known Allergies Allergy Verified 09/18/19 12:17 - Ebola screening Have you traveled outside of the country in the last 21 days: No Have you had contact with anyone from an Ebola affected area: No Do you have a fever: No - Review of Systems Constitutional: Chills EENT: reports: No Symptoms Reported Respiratory: reports: No Symptoms reported Cardiac: reports: No Symptoms Reported GI: reports: Abdominal cramping Musculoskeletal: reports: Joint Pain, Muscle Pain Psychiatric: reports: Judgement Intact, Mood/Affect Appropiate, Orientated x3 Patient History - Patient Medical History Hx Anemia: No Hx Asthma: Yes (albuterol ) Hx Chronic Obstructive Pulmonary Disease (COPD): No Hx Cancer: No Hx Cardiac Disorders: No Hx Congestive Heart Failure: No Hx Hypertension: Yes (NON COMPLIANT WITH MEDS.) Hx Hypercholesterolemia: Yes (non adherent ) Hx Pacemaker: No HX Cerebrovascular Accident: No Hx Seizures: No Hx Dementia: No Hx Diabetes: Yes (Type II non compliant with meds.metformin hasn't taken ) Hx Gastrointestinal Disorders: No Hx Liver Disease: No Hx Genitourinary Disorders: No Hx Sexually Transmitted Disorders: No Hx Renal Disease (ESRD): No Hx Thyroid Disease: No Hx Human Immunodeficiency Virus (HIV): No Hx Hepatitis C: No Hx Depression: Yes Hx Suicide Attempt: No Hx Bipolar Disorder: Yes Hx Schizophrenia: No - Patient Surgical History Past Surgical History: No Hx Neurologic Surgery: No Hx Cataract Extraction: No Hx Cardiac Surgery: No Hx Lung Surgery: No Hx Breast Surgery: No Hx Breast Biopsy: No Hx Abdominal Surgery: No Hx Appendectomy: No Hx Cholecystectomy: No Hx Genitourinary Surgery: No Hx Section: No Hx Orthopedic Surgery: No Anesthesia Reaction: No - PPD History Date: 07/05/18 Results: 0 MM - Reproductive History Last Menstrual Period: 03/09/03 - Smoking Cessation Smoking history: Current every day smoker Have you smoked in the past 12 months: Yes Aproximately how many cigarettes per day: 10 Cigars Per Day: 0 Hx Chewing Tobacco Use: No Initiated information on smoking cessation: Yes 'Breaking Loose' booklet given: 09/18/19 - Substances abused Heroin Substance route: Inhalation Frequency: Daily Amount used: 7 bags Age of first use: 21 Date of last use: 09/17/19 Alcohol Substance route: Oral Frequency: Daily Amount used: 2 pints of vodka Age of first use: 25 Date of last use: 09/17/19 Admission Physical Exam S - Vital Signs Vital Signs: Vital Signs - 24 hr 09/18/19 12:17 Temperature 97.6 F Pulse Rate 91 H Respiratory 16 Rate Blood Pressure 144/95 - Physical General Appearance: Yes: No Apparent Distress, Nourished, Appropriately Dressed HEENTM: Yes: EOMI, Normal ENT Inspection, Normocephalic, CHON Respiratory: Yes: Chest Non-Tender, Lungs Clear, Normal Breath Sounds, No Respiratory Distress, No Accessory Muscle Use Neck: Yes: Trachea in good position Cardiology: Yes: Regular Rhythm, Regular Rate, S1, S2, Murmur (sysytolic ejection murmur best heard at the RUSB). No: JVD, Gallop/S3, Gallop/S4 Abdominal: Yes: Normal Bowel Sounds, Non Tender, Flat, Soft Neurological: Yes: senior test engineer II-XII NML intact, Fully Oriented, Alert, Motor Strength 5/5, Normal Mood/Affect, Normal Response Integumentary: Yes: Normal Color, Dry, Warm - Diagnostic (1) Diabetes Current Visit: Yes Status: Acute (2) Alcohol dependence with withdrawal Current Visit: No Status: Acute Qualifiers: Complication of substance-induced condition: uncomplicated Qualified Code(s ): F10.230 - Alcohol dependence with withdrawal, uncomplicated (3) Opioid dependence with withdrawal Current Visit: No Status: Acute (4) Asthma Current Visit: No Status: Chronic Qualifiers: Asthma severity: mild Asthma persistence: intermittent Asthma complication type: unspecified Qualified Code(s): J45.20 - Mild intermittent asthma, uncomplicated (5) Hypertension Current Visit: No Status: Chronic Qualifiers: Hypertension type: essential hypertension Qualified Code(s): I10 - Essential (primary) hypertension (6) Nicotine dependence Current Visit: No Status: Chronic Qualifiers: Nicotine product type: cigarettes Substance use status: uncomplicated Qualified Code(s): F17.210 - Nicotine dependence, cigarettes, uncomplicated (7) Pacemaker Current Visit: No Status: Chronic Breathalyzer - Breathalyzer Breathalyzer: 0.075 Urine Drug Screen - Test Device Lot number: [id number] Expiration date: 04/21/21 - Control Is test valid?: Yes - Results Drug screen NEGATIVE: No Urine drug screen results: FEN-Fentanyl, MOP-Opiates, BZO-Benzodiazepines Inpatient Rehab Admission - Rehab Decision to Admit Inpatient rehab admission?: No
[2019-09-18] MEDS ORDERED: hydrOXYzine PAMOATE 25 MG CAPSULE (FP) PO PRN (13:43)
[2019-09-18] MEDS ORDERED: cloNIDine HCL 0.1 MG TABLET PO PRN (13:43)
[2019-09-18] MEDS ORDERED: MENTHOL/PHENOL 1 EACH UD MM PRN (13:43)
[2019-09-18] MEDS ORDERED: MAGNESIUM HYDROX 2400MG/30ML ORAL SUSPENSION 30 ML CUP PO PRN (13:43)
[2019-09-18] MEDS ORDERED: ACETAMINOPHEN 325 MG TABLET (FP) PO PRN ×2 (13:43)
[2019-09-18] MEDS ORDERED: IBUPROFEN 400 MG TABLET (FP) PO PRN (13:43)
[2019-09-18] MEDS ORDERED: NICOTINE POLACRILEX 2 MG GUM BUC PRN (13:43)
[2019-09-18] MEDS ORDERED: METHOCARBAMOL 500 MG TABLET PO PRN (13:43)
[2019-09-18] MEDS ORDERED: MAGNESIUM CITRATE 300 ML BOTTLE PO PRN (13:43)
[2019-09-18] MEDS ORDERED: BISMUTH SUBSALICYLATE 524 MG/30 ML UD PO PRN (13:43)
[2019-09-18] MEDS ORDERED: MAG HYDROX/AL HYDROX/SIMETH 30 ML UNIT-DOSE CUP PO PRN (13:43)
[2019-09-18] MEDS ORDERED: chlordiazePOXIDE HCL 25 MG CAPSULE PO PRN (13:43)
[2019-09-18] MEDS ORDERED: METHADONE HCL 10 MG TABLET (FOR DETOX USE ONLY) PO ONE (14:40)
--- NOTE | 2019-09-18 14:47 | PN ---
Teaching Attending Note Name of Resident: Chester Ghosh ATTENDING PHYSICIAN STATEMENT I saw and evaluated the patient. I reviewed the resident's note and discussed the case with the resident. I agree with the resident's findings and plan as documented. SUBJECTIVE:this 54 years old female with heroin and alcohol dependence,asthma, hypertension,type 2 dm, history of pneumonia OBJECTIVE:withdrawal symptom ASSESSMENT AND PLAN: patient needed inpatient detox,methadone and librium regimen,medical managed, will go to rehab after detox
[2019-09-18 17:07] LABS: HEMATOCRIT 36.7 % (32.4-45.2); HEMOGLOBIN 11.8 GM/dL (10.7-15.3); MCH 29.1 pg (25.7-33.7); MCHC 32.3 g/dl (32.0-36.0); MEAN CELL VOLUME 90.2 fl (80-96); RBC 4.07 M/mm3 (3.60-5.2); RDW 17.9 % (11.6-15.6); WHITE BLOOD COUNT 5.1 K/mm3 (4.0-10.0)
[2019-09-18 17:16] LABS: ALBUMIN 3.1 g/dl (3.4-5.0); BILIRUBIN,TOTAL 0.4 mg/dL (0.2-1); BLOOD UREA NITROGEN 7.2 mg/dL (7-18); CALCIUM 8.5 mg/dL (8.5-10.1); CREATININE 0.8 mg/dL (0.55-1.3); TOT PROT 7.3 g/dl (6.4-8.2)
[2019-09-18] MEDS: chlordiazePOXIDE HCL 25 MG CAPSULE PO SCH ×2 (17:18→22:25)
[2019-09-18] MEDS: MELATONIN 5 MG TABLETS PO PRN (22:26)
[2019-09-18] MEDS: THIAMINE HCL 100 MG TABLET (FP) PO SCH (22:26)
[2019-09-19] MEDS: chlordiazePOXIDE HCL 25 MG CAPSULE PO SCH ×4 (06:20→22:00)
[2019-09-19] MEDS ORDERED: METHADONE HCL 5 MG TABLET (FOR DETOX USE ONLY) PO ONE (10:00)
[2019-09-19] MEDS: NICOTINE 14 MG/24 HOURS TOPICAL PATCH TD SCH (10:13)
[2019-09-19] MEDS: PRENATAL VITAMINS W/ FOLIC ACID TABLET (FP) PO SCH (10:13)
--- NOTE | 2019-09-19 13:36 | EKG ---
Test Reason : Blood Pressure : / mmHG Vent. Rate : 071 BPM Atrial Rate : 071 BPM P-R Int : 152 ms QRS Dur : 094 ms QT Int : 396 ms P-R-T Axes : 050 049 035 degrees QTc Int : 430 ms NORMAL SINUS RHYTHM NORMAL ECG WHEN COMPARED WITH ECG OF 19-SEP-2018 17:23, SINUS RHYTHM HAS REPLACED ELECTRONIC ATRIAL PACEMAKER MINIMAL CRITERIA FOR SEPTAL INFARCT ARE NO LONGER PRESENT Confirmed by MD MEGHNA, MARICRUZ ([id number]) on 09/19/2019 1:36:37 PM Referred By: Confirmed By:MARICRUZ COFFMAN MD
[2019-09-19] MEDS ORDERED: ALBUTEROL SO4 8 GM HFA INHALER IH PRN (15:14)
[2019-09-19] MEDS ORDERED: ENALAPRIL MALEATE 2.5 MG TABLET (FP) PO SCH (15:15)
--- NOTE | 2019-09-19 15:19 | PN ---
S CIWA - CIWA Score Nausea/Vomitin-No Nausea/No Vomiting Muscle Tremors: None Anxiety: 2 Agitation: 1-Slight > Activity Paroxysmal Sweats: 3 Orientation: 0-Oriented Tacttile Disturbances: 2-Mild Itch/Numbness/Burn Auditory Disturbances: 0-None Visual Disturbances: 2-Mild Sensitivity Headache: 0-None Present CIWA-Ar Total Score: 10 BHS COWS - Scale Resting Pulse: 0= IA 80 or Below Sweatin= Chills/Flushing Restless Observation: 1= Difficult to Sit Still Pupil Size: 0= Normal to Room Light Bone or Joint Aches: 0= None Runny Nose/ Eye Tearin= None GI Upset > 30mins: 0= None Tremor Observation of Outstretched Hands: 2= Slight Tremor Visible Yawning Observation: 1= 1-2x During Session Anxiety or Irritability: 2=Irritable/Anxious Goose Flesh Skin: 3=Piloerection COWS Score: 10 S Progress Note (SOAP) Subjective: Tremors, Anxious, Fatigue, Sweating. Objective: PATIENT A & O X 2 (UNCERTAIN ABOUT CURRENT DAY/ DATE). PATIENT OBSERVED AMBULATING ON DETOX UNIT UNASSISTED. IN NO ACUTE DISTRESS. 09/19/19 15:20 Vital Signs Temperature 98.4 F 09/19/19 13:30 Pulse Rate 77 09/19/19 13:30 Respiratory Rate 18 09/19/19 13:30 Blood Pressure 133/96 09/19/19 13:30 O2 Sat by Pulse Oximetry (%) Laboratory Tests 09/18/19 09/18/19 09/18/19 13:58 15:43 15:43 WBC 5.1 RBC 4.07 Hgb 11.8 Hct 36.7 MCV 90.2 MCH 29.1 MCHC 32.3 RDW 17.9 H Plt Count No Result Required. Manual Slide Review Slide scanned. Platelet Comment Slt plt clumping Sodium 141 Potassium 4.0 Chloride 106 Carbon Dioxide 28 Anion Gap 7 L BUN 7.2 Creatinine 0.8 Est GFR (CKD-EPI)AfAm 95.52 Est GFR (CKD-EPI)NonAf 82.42 POC Glucometer 117 Random Glucose 112 H Calcium 8.5 Total Bilirubin 0.4 AST 85 H ALT 49 Alkaline Phosphatase 260 H Total Protein 7.3 Albumin 3.1 L RPR Titer 09/18/19 15:43 WBC RBC Hgb Hct MCV MCH MCHC RDW Plt Count Manual Slide Review Platelet Comment Sodium Potassium Chloride Carbon Dioxide Anion Gap BUN Creatinine Est GFR (CKD-EPI)AfAm Est GFR (CKD-EPI)NonAf POC Glucometer Random Glucose Calcium Total Bilirubin AST ALT Alkaline Phosphatase Total Protein Albumin RPR Titer Nonreactive LABS NOTED. Assessment: 09/19/19 15:20 WITHDRAWAL SYMPTOMS. HYPERTENSION. ELEVATED AST LEVEL. ELEVATED ALKALINE PHOSPHATASE LEVEL. 09/19/19 15:23 Plan: CONTINUE DETOX. ENALAPRIL, 2.5 MG ORALLY DAILY ORDERED FOR ELEVATED BLOOD PRESSURE (RECONCILED FROM HOME MEDICATION LIST.).
[2019-09-19] MEDS: ENALAPRIL MALEATE 2.5 MG TABLET (FP) PO SCH (18:01)
[2019-09-19] MEDS: THIAMINE HCL 100 MG TABLET (FP) PO SCH (22:00)
[2019-09-20] MEDS: chlordiazePOXIDE HCL 25 MG CAPSULE PO SCH ×4 (05:39→22:04)
[2019-09-20 09:43] LABS: ALK PHOS 215 U/L (45-117); SGOT/AST 41 U/L (15-37)
[2019-09-20] MEDS ORDERED: PATIENT'S OWN MEDICATION (NON-FORMULARY) (Metformin Hcl [Metformin Er Osmotic] 500 MG) PO SCH (10:00)
[2019-09-20] MEDS ORDERED: METHADONE HCL 10 MG TABLET (FOR DETOX USE ONLY) PO ONE (10:00)
[2019-09-20] MEDS: ENALAPRIL MALEATE 2.5 MG TABLET (FP) PO SCH (10:15)
[2019-09-20] MEDS: ASPIRIN 81 MG CHEWABLE TABLETS PO SCH (10:15)
[2019-09-20] MEDS: PRENATAL VITAMINS W/ FOLIC ACID TABLET (FP) PO SCH (10:15)
[2019-09-20] MEDS: NICOTINE 14 MG/24 HOURS TOPICAL PATCH TD SCH (10:15)
--- NOTE | 2019-09-20 16:11 | PN ---
[facility] CIWA - CIWA Score Nausea/Vomitin-No Nausea/No Vomiting Muscle Tremors: 2 Anxiety: 2 Agitation: 1-Slight > Activity Paroxysmal Sweats: 2 Orientation: 0-Oriented Tacttile Disturbances: 0-None Auditory Disturbances: 0-None Visual Disturbances: 0-None Headache: 0-None Present CIWA-Ar Total Score: 7 BHS COWS - Scale Resting Pulse: 0= [place] 80 or Below Sweatin= Chills/Flushing Restless Observation: 1= Difficult to Sit Still Pupil Size: 0= Normal to Room Light Bone or Joint Aches: 1= Mild Discomfort Runny Nose/ Eye Tearin= None GI Upset > 30mins: 1= Stomach Cramp Tremor Observation of Outstretched Hands: 2= Slight Tremor Visible Yawning Observation: 0= None Anxiety or Irritability: 1=Feels Anxious/Irritable Goose Flesh Skin: 0=Smooth Skin COWS Score: 7 S Progress Note (SOAP) Subjective: Interrupted sleep Objective: 09/20/19 16:09 Last Vital Signs Temp Pulse Resp BP Pulse Ox 98.1 F 60 18 136/90 09/20/19 14:46 09/20/19 14:46 09/20/19 14:46 09/20/19 14:46 Laboratory Tests 09/18/19 09/18/19 09/18/19 13:58 15:43 15:43 WBC 5.1 RBC 4.07 Hgb 11.8 Hct 36.7 MCV 90.2 MCH 29.1 MCHC 32.3 RDW 17.9 H Plt Count No Result Required. Manual Slide Review Slide scanned. Platelet Comment Slt plt clumping Sodium 141 Potassium 4.0 Chloride 106 Carbon Dioxide 28 Anion Gap 7 L BUN 7.2 Creatinine 0.8 Est GFR (CKD-EPI)AfAm 95.52 Est GFR (CKD-EPI)NonAf 82.42 POC Glucometer 117 Random Glucose 112 H Calcium 8.5 Total Bilirubin 0.4 AST 85 H ALT 49 Alkaline Phosphatase 260 H Total Protein 7.3 Albumin 3.1 L RPR Titer 09/18/19 09/19/19 09/20/19 15:43 16:36 05:38 WBC RBC Hgb Hct MCV MCH MCHC RDW Plt Count Manual Slide Review Platelet Comment Sodium Potassium Chloride Carbon Dioxide Anion Gap BUN Creatinine Est GFR (CKD-EPI)AfAm Est GFR (CKD-EPI)NonAf POC Glucometer 110 128 Random Glucose Calcium Total Bilirubin AST ALT Alkaline Phosphatase Total Protein Albumin RPR Titer Nonreactive 09/20/19 07:20 WBC RBC Hgb Hct MCV MCH MCHC RDW Plt Count Manual Slide Review Platelet Comment Sodium Potassium Chloride Carbon Dioxide Anion Gap BUN Creatinine Est GFR (CKD-EPI)AfAm Est GFR (CKD-EPI)NonAf POC Glucometer Random Glucose Calcium Total Bilirubin AST 41 H ALT Alkaline Phosphatase 215 H Total Protein Albumin RPR Titer Labs reviewed: elevated LFTs (trending downward) Assessment: 09/20/19 16:10 Withdrawal sxs Elevated LFTs noted Plan: Continue detox Encouraged PO water intake Elevated LFTs: trending downward
[2019-09-20] MEDS: THIAMINE HCL 100 MG TABLET (FP) PO SCH (22:04)
[2019-09-20] MEDS: MELATONIN 5 MG TABLETS PO PRN (22:05)
[2019-09-21] MEDS ORDERED: chlordiazePOXIDE HCL 10 MG CAPSULE PO PRN
[2019-09-21] MEDS ORDERED: METHADONE HCL 5 MG TABLET (FOR DETOX USE ONLY) PO ONE (06:00)
[2019-09-21] MEDS: chlordiazePOXIDE HCL 10 MG CAPSULE PO SCH ×2 (06:05→10:12)
[2019-09-21 09:17] VITALS: BP 109/64; PULSE 58; TEMP 98.2
--- NOTE | 2019-09-21 09:52 | PN ---
[facility] CIWA - CIWA Score Nausea/Vomitin-No Nausea/No Vomiting Muscle Tremors: 2 Anxiety: 1-Mildly Anxious Agitation: 1-Slight > Activity Paroxysmal Sweats: 2 Orientation: 0-Oriented Tacttile Disturbances: 0-None Auditory Disturbances: 0-None Visual Disturbances: 0-None Headache: 0-None Present CIWA-Ar Total Score: 6 S COWS - Scale Resting Pulse: 0= [place] 80 or Below Sweatin= Chills/Flushing Restless Observation: 1= Difficult to Sit Still Pupil Size: 0= Normal to Room Light Bone or Joint Aches: 1= Mild Discomfort Runny Nose/ Eye Tearin= None GI Upset > 30mins: 0= None Tremor Observation of Outstretched Hands: 1= Tremor [place], Not Seen Yawning Observation: 0= None Anxiety or Irritability: 2=Irritable/Anxious Goose Flesh Skin: 0=Smooth Skin COWS Score: 6 S Progress Note (SOAP) Subjective: agitation sweats shakes irritable Objective: 09/21/19 09:51 Vital Signs Temperature 98.2 F 09/21/19 09:17 Pulse Rate 58 L 09/21/19 09:17 Respiratory Rate 16 09/21/19 09:17 Blood Pressure 109/64 09/21/19 09:17 O2 Sat by Pulse Oximetry (%) Laboratory Tests 09/18/19 09/18/19 09/18/19 13:09 13:58 15:43 WBC 5.1 RBC 4.07 Hgb 11.8 Hct 36.7 MCV 90.2 MCH 29.1 MCHC 32.3 RDW 17.9 H Plt Count No Result Required. Manual Slide Review Slide scanned. Platelet Comment Slt plt clumping Sodium Potassium Chloride Carbon Dioxide Anion Gap BUN Creatinine Est GFR (CKD-EPI)AfAm Est GFR (CKD-EPI)NonAf POC Glucometer 117 Random Glucose Calcium Total Bilirubin AST ALT Alkaline Phosphatase Total Protein Albumin POC Urine HCG, Qual Negative RPR Titer 09/18/19 09/18/19 09/19/19 15:43 15:43 16:36 WBC RBC Hgb Hct MCV MCH MCHC RDW Plt Count Manual Slide Review Platelet Comment Sodium 141 Potassium 4.0 Chloride 106 Carbon Dioxide 28 Anion Gap 7 L BUN 7.2 Creatinine 0.8 Est GFR (CKD-EPI)AfAm 95.52 Est GFR (CKD-EPI)NonAf 82.42 POC Glucometer 110 Random Glucose 112 H Calcium 8.5 Total Bilirubin 0.4 AST 85 H ALT 49 Alkaline Phosphatase 260 H Total Protein 7.3 Albumin 3.1 L POC Urine HCG, Qual RPR Titer Nonreactive 09/20/19 09/20/19 09/20/19 05:38 07:20 16:55 WBC RBC Hgb Hct MCV MCH MCHC RDW Plt Count Manual Slide Review Platelet Comment Sodium Potassium Chloride Carbon Dioxide Anion Gap BUN Creatinine Est GFR (CKD-EPI)AfAm Est GFR (CKD-EPI)NonAf POC Glucometer 128 156 Random Glucose Calcium Total Bilirubin AST 41 H ALT Alkaline Phosphatase 215 H Total Protein Albumin POC Urine HCG, Qual RPR Titer 09/21/19 06:03 WBC RBC Hgb Hct MCV MCH MCHC RDW Plt Count Manual Slide Review Platelet Comment Sodium Potassium Chloride Carbon Dioxide Anion Gap BUN Creatinine Est GFR (CKD-EPI)AfAm Est GFR (CKD-EPI)NonAf POC Glucometer 99 Random Glucose Calcium Total Bilirubin AST ALT Alkaline Phosphatase Total Protein Albumin POC Urine HCG, Qual RPR Titer aaox3 ambulating no acute distress Assessment: 09/21/19 09:51 withdrawals Plan: continue detox
[2019-09-21] MEDS: NICOTINE 14 MG/24 HOURS TOPICAL PATCH TD SCH (10:12)
[2019-09-21] MEDS: ASPIRIN 81 MG CHEWABLE TABLETS PO SCH (10:13)
[2019-09-21] MEDS: PRENATAL VITAMINS W/ FOLIC ACID TABLET (FP) PO SCH (10:13)
[2019-09-22] MEDS ORDERED: chlordiazePOXIDE HCL 10 MG CAPSULE PO SCH (05:00)
[2019-09-23] MEDS ORDERED: chlordiazePOXIDE HCL 10 MG CAPSULE PO ONE (05:00)
== END 2019-09-21 11:40 | disposition home or self-care (01) | DRG 773 ==
LOC: YASAS 11:58 → Y6N 13:55
PROVIDERS: ADMIT Allergy & Immunology; ATTEND Allergy & Immunology
PROC: HZ2ZZZZ Detoxification Services for Substance Abuse Treatment (ICD-10-PCS; principal; 2019-09-18)
DX: F11.23 Opioid dependence with withdrawal (principal); F10.230 Alcohol dependence with withdrawal, uncomplicated; F17.210 Nicotine dependence, cigarettes, uncomplicated; I10 Essential (primary) hypertension; R94.5 Abnormal results of liver function studies; R74.0 Nonspecific elevation of levels of transaminase and lactic acid dehydrogenase [LDH]; E11.9 Type 2 diabetes mellitus without complications; J45.20 Mild intermittent asthma, uncomplicated; E78.00 Pure hypercholesterolemia, unspecified; R01.1 Cardiac murmur, unspecified; Z91.14 Patient's other noncompliance with medication regimen; Z95.0 Presence of cardiac pacemaker; Z79.84 Long term (current) use of oral hypoglycemic drugs
CPT/HCPCS: 36415; 80053; 81025; 82962; 84075; 84450; 85027; 86593; 93005; 93010; J0735